=== PATIENT | female | born 1975 | race Caucasian/White ===

== ENCOUNTER → 2017-09-29 07:49 | Outpatient (CLI) | payer OTHER, SELFPAY ==
--- NOTE | 2017-09-29 07:51 | HPBI_ITS ---
MAMMOGRAPHY - BILATERAL SCREENING 3-D SCOUT SYNTHESIS REASON FOR EXAM: Female, 42 years old. Bilateral Screening 3-D tomosynthesis PERTINENT HISTORY: No significant family history. TECHNIQUE: 2-D mammograms and 3-D Scout synthesis of the breast (s) were performed. CAD was performed. COMPARISON: None. Baseline examination. FINDINGS: The breast composition is heterogeneously dense that can obscure small breast masses. Scattered benign calcifications are seen. No dense spiculated masses or suspicious microcalcifications are identified. No architectural distortion is identified. There is no skin thickening or retraction. HPBI/SCREENING MAMM (CAD), BILAT IMPRESSION: No mammographic signs of malignancy. Routine yearly mammograms recommended. ASSESSMENT CATEGORY: BIRADS Category 2: Benign. A letter regarding these results will be sent to the patient by the facility within 30 days. FOLLOW UP RECOMMENDATION: Yearly follow up mammogram recommended. (A) Approximately 10% of breast cancers are not detected by mammography. A normal mammogram should not delay biopsy of a clinically suspicious abnormality. Electronically Signed: Foster Reich MD at 8:31 EDT , Service support ,
== END ==
PROVIDERS: Family Provider Family Medicine; PCP Family Medicine; Visit Provider Obstetrics & Gynecology
DX: Z12.31 Encounter for screening mammogram for malignant neoplasm of breast (principal)
CPT/HCPCS: 77063; 77067

== ENCOUNTER 2018-04-01 10:43 | Emergency (ER) | payer OTHER, SELFPAY ==
[2018-04-01 10:44] VITALS: BP 119/82; PULSE 84; RESP 18; TEMP 36.6; O2SAT 99; BMI 21.2
--- NOTE | 2018-04-01 11:14 | RAD_ITS ---
STUDY: X-RAY - PELVIS AND LEFT HIP REASON FOR EXAM: Female, 43 years old. Fall. Pain in the left hip and pelvis. TECHNIQUE: Radiological exam, hip, unilateral, with pelvis when performed; 2 or 3 views. COMPARISON: None. FINDINGS: There is a non-specific bowel gas pattern. Normal visualized soft tissue structures. Normal bilateral iliac wings, sacroiliac joints and visualized sacrum. Normal bilateral superior and inferior pubic rami. Normal pubic symphysis. Normal bilateral ischial tuberosities. Normal visualized left femoral head. Normal left acetabulum. Normal left hip joint. RAD/HIP, UNI W/ Pelvis 2-3 Views IMPRESSION: Normal x-ray examination of the pelvis and left hip. Electronically Signed: Damon Pierre DO at 12:02 EDT Tel [phone], Service support ,
--- NOTE | 2018-04-01 12:22 | ED.VISSUMM ---
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 Yesterday she was walking out of the patient's room when she fell on wet floor landing on her left hip. She is complaining of pain to the posterior left hip. She denies paresthesias or pain radiating down her leg. She denies striking her head. Physical Examination: Vital signs are unremarkable. Patient sitting in a bedside chair. She is in no acute distress. Head neck examination is unremarkable. Heart is regular rate and rhythm. Lung sounds clear. Lower extremity examination reveals tenderness palpation of the posterior and lateral acid of the left hip. She has minimal pain with logroll. She has good strength and sensation with strong distal pulses. Back examination reveals tenderness in the left lumbar paraspinals. No ecchymosis noted. Test Results: Pelvis and left hip x-rays are obtained and unremarkable. Emergency Department Course and Treatment: Test results are discussed with patient. She will use Tylenol or ibuprofen at home. She will follow up with [facility]. Treatment Plan: [] Disposition: Discharge Impression: Mechanical fall with left hip contusion This note was generated with [employer] dictation software. It may contain incorrect words, spelling, and punctuation that were not noted in review of the chart prior to signing ED Disposition - Plan for ED Patient: Chief Complaint: Fall Referrals: Monico Bhandari MD [Primary Care Provider] -
--- NOTE | 2018-04-01 12:24 | ED.DEP ---
ED Disposition - Plan for ED Patient: Disposition: Home or Assisted Living Chief Complaint: Fall Instructions: ED Mechanical Fall, ED Contusion Hip Referrals: [facility] [GROUP OF PHYSICIANS] - 2 Days
[2018-04-01 12:37] VITALS: BP 118/82; PULSE 82; RESP 16; O2SAT 98
== END 2018-04-01 12:55 | disposition home or self-care (01) ==
LOC: ED 12:52
PROVIDERS: Emergency Provider Emergency Medicine; Family Provider Family Medicine; PCP Family Medicine
DX: S70.02XA Contusion of left hip, initial encounter (principal); W01.0XXA Fall on same level from slipping, tripping and stumbling without subsequent striking against object, initial encounter; Y93.89 Activity, other specified; Y92.230 Patient room in hospital as the place of occurrence of the external cause; Y99.0 Civilian activity done for income or pay
CPT/HCPCS: 73502; 99282

== ENCOUNTER → 2018-04-06 08:30 | Outpatient (CLI) | payer OTHER, SELFPAY ==
--- NOTE | 2018-04-06 08:31 | RAD_ITS ---
STUDY: X-RAY - LUMBAR SPINE REASON FOR EXAM: Female, 43 years old. Low back pain following a recent fall. TECHNIQUE: 4 view(s) of the lumbar spine were obtained. 5 images were submitted including oblique views. COMPARISON: None FINDINGS: Normal lumbar lordosis. There is no substantial scoliosis. There is a normal alignment of the vertebrae. Is evidence of a spina bifida occulta of the L5 vertebrae. Normal vertebral bodies and endplates. Normal disc space heights. The soft tissue structures are unremarkable. RAD/L/S Spine Min 4 Views IMPRESSION: Normal x-ray examination of the lumbar spine. Electronically Signed: Amrit Wood MD at 8:59 EDT Tel [phone], Service support ,
== END ==
PROVIDERS: Family Provider Family Medicine; PCP Family Medicine; Referring Provider Physician Assistant Surgical; Visit Provider Physician Assistant Surgical
DX: S70.02XA Contusion of left hip, initial encounter (principal)
CPT/HCPCS: 72110

== ENCOUNTER 2019-08-27 15:33 | Outpatient (RCR) | payer OTHER, SELFPAY ==
[2019-01-24 08:08] VITALS: BMI 21.7
--- NOTE | 2019-08-28 10:52 | MASS.EVAL ---
Massage Therapy Evaluation: Initial Evaluation Date: 08/27/2019 /Age: 09 1975, 44 Diagnosis: Neck Pain Goals: Decrease neck and shoulder pain and tension Relief of radiating pain in left upper extremity Assessment: Talya is a good candidate for massage at this time. She responded well to her first treatment. Plan: To be seen one time per month or PRN for a total of 10 one hour sessions.
--- NOTE | 2020-06-18 08:54 | DS.PCM_ITS ---
Massage Therapy Discharge Summary: Initial Evaluation Date: 08/27/2019 Diagnosis: Neck Pain No. of Visits: One Date of last visit: 08/27/2019 This patient is being discharged from our care at the [facility]. Thank you, Jojo Powell LMT
== END 2019-08-27 19:00 | disposition home or self-care (01) ==
LOC: MASS 15:33
PROVIDERS: PCP Family Medicine; Referring Provider Family Medicine; Visit Provider Family Medicine
DX: M54.2 Cervicalgia (principal)
CPT/HCPCS: 97124

== ENCOUNTER 2019-09-08 12:20 | Emergency (ER) | payer OTHER, SELFPAY ==
[2019-01-24 08:08] VITALS: BMI 21.7
[2019-09-08 12:23] VITALS: BP 131/84; PULSE 84; RESP 19; TEMP 36.8; O2SAT 97; BMI 21.9
--- NOTE | 2019-09-08 12:33 | EKG12_ITS ---
Test Reason : CP Blood Pressure : / mmHG Vent. Rate : 087 BPM Atrial Rate : 087 BPM P-R Int : 148 ms QRS Dur : 068 ms QT Int : 354 ms P-R-T Axes : 071 062 056 degrees QTc Int : 425 ms Normal sinus rhythm Septal infarct , age undetermined Abnormal ECG Confirmed by ARNOL MERINO, ALPA ([id number]), non linear editor JORGE ALBERTO CONNOLLY ([id number]) on 09/09/2019 10:18:15 AM Referred By: DARLINE Confirmed By:ALPA AMBROSE MD
--- NOTE | 2019-09-08 12:34 | RAD_ITS ---
STUDY: X-RAY CHEST REASON FOR EXAM: Female, 44 years old. CHEST PAIN X 2 DAYS TECHNIQUE: PA and lateral views of the chest. COMPARISON: None. FINDINGS: The lungs are clear and expanded. There is no demonstrated pleural abnormality. Normal size heart. Normal mediastinum and lei. Normal visualized pulmonary arteries. Normal visualized aortic arch and descending thoracic aorta. Normal visualized thoracic spine. Normal visualized ribs, clavicles, and shoulders. There is no demonstrated abnormality of the visualized soft tissue structures of the upper abdomen. RAD/Chest PA and Lateral IMPRESSION: No acute cardiopulmonary process. Electronically Signed: Dilan Whiting MD (Brooks) at 13:30 EST , Service support ,
--- NOTE | 2019-09-08 12:35 | ED.VIS.CHEST ---
History of Present Illness Informant: Patient Onset: Days - 2 days Activity at onset: Light Activity, Rest Timing: Continuous Quality: Burning Location: Substernal Current Severity: Moderate Maximum Severity: Moderate Worsened By: Nothing Relieved By: Nothing Associated Symptoms: Negative for: Nausea, Vomiting, Diaphoresis, Dyspnea, Cough, Fever, Lightheadedness, Acid Reflux, Palpitations Narrative: 4-year-old female presents to the emergency department with substernal chest pain that is been constant now for the last 2 days. Nothing really makes it better or worse. She is not short of breath. She is not lightheaded or dizzy. She has no nausea vomiting or diaphoresis. No back pain or abdominal pain. No vomiting or diarrhea. No leg pain or swelling. No hemoptysis. No upper respiratory symptoms. No recent travel or surgery. No history of DVT or PE. She states that she has felt just generally weak and fatigued since his pain began 2 days ago. She is not on hormones. She does have a family history grandfather on father's side [place] around age 50. She has never had a stress test she does not smoke cigarettes and is not on any daily medications. Prior Similar Symptoms: No Recent Illness/Hospitalization: No CVD Risk Factors: Family History 1' </=55. Negative for: Hypertension, Diabetes, Hypercholesterolemia, Smoking PE Risk Factors: Negative for: Recent Travel/Surgery, Recenet Immobilization, Prior DVT or PE, Cancer, OCP + Smoking + >/=35 TAD Risk Factors: Negative for: Hypertension, Family History <Eran Lara - Last Filed: 09/08/19 13:51> <Christiano Perez - Last Filed: 09/08/19 14:02> Chief Complaint: Chest Pain Past Medical History Prior records reviewed: Yes Past Medical History: None Surgical History: no surgical history Lives: With Family Smoking Status: Never smoker Alcohol: Occasional <Eran Lara - Last Filed: 09/08/19 13:51> <Rick Perezo - Last Filed: 09/08/19 14:02> - Allergies and Home Meds Allergies/Adverse Reactions: Allergies No Known Allergies Allergy (Verified 09/08/19 12:23) Primary Care Physician: Monico Bhandari MD [Primary Care Provider] - 3-5 Days Review of Systems All systems negative except as indicated General: Denies: Chills, Fever Eyes: Denies: Visual changes - bilaterally, Blurred Vision - bilaterally, Diplopia ENT: Denies: Rhinorrhea, Sore throat Cardiovascular: Reports: Chest pain. Denies: Palpitations, Heart racing Respiratory: Denies: Dyspnea, Cough, Sputum Gastrointestinal: Denies: Abdominal pain, Nausea, Vomiting, Diarrhea, Constipation, Melena Genitourinary: Denies: Dysuria, Frequency Musculoskeletal: Denies: Myalgias, Arthralgias, Neck pain, Back pain, Swelling, Extremity Pain Skin: Denies: Rash, Abscess, Abrasions, Wounds Neurological: Denies: Headache, Weakness, Parasthesia, Numbness Hematologic: Denies: Easy bruising, Easy bleeding <Eran Lara - Last Filed: 09/08/19 13:51> Physical Exam Vital Signs/Narrative: Vital Signs Temp Pulse Resp BP Pulse Ox 09/08/19 12:23 98.2 F 84 19 H 131/84 H 97 Inital Vital Signs reviewed: Yes General: Well nourished, Well developed, No Acute Distress Head: Normocephalic, Atraumatic Eyes: Perrl, EOMI ENT: Moist mucous membranes Neck: Supple, Nontender, No lymphadenopathy, No JVD Cardiovascular: Regular rate, Regular rhythm, No murmurs Respiratory: No distress, CTA bilaterally, Chest nontender Abdomen: Soft, Nontender, Nondistended, Normal bowel sounds, No masses Back: Nontender, Normal Inspection Extremities: Nontender, No edema Skin: Normal color, No rash Neurological: Alert, Oriented x3 Psychological: Normal affect, Normal Mood <Eran Lara - Last Filed: 09/08/19 13:51> Vital Signs/Narrative: Vital Signs Temp Pulse Resp BP Pulse Ox 09/08/19 12:23 98.2 F 84 19 H 131/84 H 97 <Perez,Christiano - Last Filed: 09/08/19 14:02> Diagnostic/Tx/Re-eval Chest X-Ray - ED: 2 View, Read by ED Physician, Read by Radiologist, No Acute Disease - Rhythm Strip Rhythm Strip: Sinus Rhythm Rate: 87 Ectopy: None - EKG Initial EKG Interpretation: Sinus Rhythm, No Acute Injury Pattern Prior: No Prior Treatment: GI Cocktail Repeat Eval: Pain Free THI Risk: No Positive THI Elements Score: 0 - Medical Decision Making EKG was normal sinus rhythm rate of 87 bpm. No acute ischemic changes. There is no previous EKG available for comparison. Patient had taken aspirin prior to arrival. She was given a GI cocktail. Vital signs are stable. Patient's chest x-ray was unremarkable for acute abnormality. CBC, CMP, lipase all are unremarkable. Troponin is negative. Repeat evaluation patient does have improvement of her symptoms. She is not having chest pain. Vital signs remained stable. She is feeling well and improved. We calculated her heart score at 1 for family history. In addition she has been having symptoms for 2 days. We do not feel she needs admission or repeat troponin testing. I discussed this with her and she is agreeable with this plan. We will discharge the patient home and have her follow-up with her primary care. She was encouraged use Pepcid [id number], she declined a prescription. Return precautions were given. <Eran Lara - Last Filed: 09/08/19 13:51> - Medical Decision Making For my own independent history and physical. Patient presents with chest discomfort that essentially radiates to the right and left side. There was no radiation to the left shoulder or arm. There is no associated symptoms. Onset Monday. She did take aspirin. She has not taken anything else for the pain. She also complains of sour taste in her mouth/throat and intermittent burning pain. There is family history coronary disease at young age. That is her only risk factor. She became concerned because she was dyspneic with activity today. It did not make the chest tightness/pressure worse. She denies black or maroon stool. She denies intolerance to greasy or fried foods. She denies history of gallbladder disease or gallbladder disease in the family. Vital signs noted. She appears in no distress. HEENT is unremarkable. Lungs are clear to auscultation with good movement of bilateral. Heart is regular murmur, gallop or rub. Abdomen is remarkable for pain in the epigastric area. Negative Iraheta sign. No hepatomegaly or splenomegaly. Lower extremity exam is unremarkable. Neuro exam is nonfocal. EKG reveals decreased anterior force otherwise unremarkable. Blood work is unremarkable. Patient was treated with GI cocktail. She was reassessed x2 prior to discharge and reports marked improvement/resolution of her symptoms. She was discharged to home. <ChrisChristiano - Last Filed: 09/08/19 14:02> ED Disposition <Eran Lara - Last Filed: 09/08/19 13:51> <Christiano Perez - Last Filed: 09/08/19 14:02> - Plan for ED Patient: Disposition: Home or Assisted Living Diagnosis: Chest pain of uncertain etiology Instructions: CHEST PAIN, Uncertain Cause Referrals: Monico Bhandari MD [Primary Care Provider] - 3-5 Days
[2019-09-08] MEDS: 0.9% Normal Saline 1,000 ML 1000 ML IV (13:09)
[2019-09-08] MEDS: Mag Hydrox/Al Hydrox/Simeth 30 ML UDC PO (13:09)
--- NOTE | 2019-09-08 13:09 | NURSING ---
NO OLD EKGS
[2019-09-08 13:25] LABS: Absolute Lymphocyte Count 1.54 X10^3/uL (0.83-4.51); Absolute Neutrophil Count 3.2 X10^3/uL (2.0-7.7); Basophil# 0.03 X10^3/uL; Basophil% 0.6 % (0-1); Eosinophil# 0.03 X10^3/uL; Eosinophils% 0.6 % (0-5); Hematocrit 36.8 % (37-47); Hemoglobin 12.5 g/dL (12.0-15.0); Lymphocyte # 1.54 X10^3/ul (4.0); Lymphocyte % 29.4 % (19-41); Mean Corpuscular Hgb 28.9 pg (27.0-32.0); Mean Corpuscular Volume 85.2 fL (81-99); Mean Platelet Vol. 10.7 fl (6.2-12.0); Monocyte# 0.39 X10^3/uL; Monocyte% 7.4 % (0-10); NRBC Flagged by Analyzer 0 % (0-5); Neutrophil # 3.24 X10^3/uL (2.7-7.7); Neutrophil % 61.8 % (47-70); Platelet Count 196 K/mm3 (150-450); RBC Distribution Width CV 11.8 % (11.6-14.6); RBC Distribution Width SD 36.3 fl (35.1-43.9); Red Blood Count 4.32 M/mm3 (4.2-5.4); White Blood Count 5.2 K/mm3 (4.4-11.0)
[2019-09-08 13:35] LABS: Internal QC Validated? YES +Cl - CLEAR BKGD; Pregnancy, Serum, hCG Quali. NEGATIVE Negative
[2019-09-08 13:46] LABS: ALB/GLOB Ratio 1.1 RATIO (0.9-2.4); AST(SGOT) 14 U/L (15-37); Alanine Aminotransfer ALT/SGPT 20 U/L (13-56); Albumin, Serum 3.8 g/dL (3.2-5.0); Alkaline Phosphatase 60 U/L (45-117); Anion Gap 7 (5-15); BUN 14 mg/dL (7-18); BUN/Creat Ratio 17.2 RATIO (10-20); Calcium,Total 9.2 mg/dL (8.5-10.1); Chloride 108 mmol/L (98-107); Creatinine, Serum 0.81 mg/dL (0.55-1.02); EST Glomerular Filtration Rate 81 mL/min (>60); Est Glom Filt Rate - Afr Amer 99 mL/min (>60); Estimated Creatinine Clearance 83.84 ml/min; Globulin 3.4 g/dL (2.2-4.2); Glucose 80 mg/dL (74-106); Lipase 103 U/L (73-393); Potassium 3.3 mmol/L (3.5-5.1); Protein, Total 7.2 g/dL (6.4-8.2); Sodium Level 140 mmol/L (136-145)
[2019-09-08 14:09] VITALS: BP 122/84; PULSE 78; PULSE 79; RESP 11; RESP 12; O2SAT 100; O2SAT 97
== END 2019-09-08 14:19 | disposition home or self-care (01) ==
PROVIDERS: Emergency Provider Physician Assistant Medical; PCP Family Medicine
DX: R07.2 Precordial pain (principal); R53.1 Weakness; R53.83 Other fatigue
CPT/HCPCS: 71046; 80053; 83690; 84484; 84703; 85025; 93005; 96360; 99285; J7030; A4216

== ENCOUNTER → 2020-06-10 16:51 | Outpatient (CLI) | payer OTHER, SELFPAY ==
[2020-06-10 18:27] LABS: Hematocrit 38.3 % (37-47); Hemoglobin 12.7 g/dL (12.0-15.0); Mean Corp Hgb Conc 33.2 g/dL (32-36); Mean Corpuscular Hgb 28.9 pg (27.0-32.0); Mean Platelet Vol. 11.3 fl (6.2-12.0); Platelet Count 198 K/mm3 (150-450); RBC Distribution Width SD 38.5 fl (35.1-43.9); White Blood Count 6.8 K/mm3 (4.4-11.0)
[2020-06-10 19:16] LABS: Anion Gap 6 (5-15); BUN 16 mg/dL (7-18); BUN/Creat Ratio 22.4 RATIO (10-20); Calcium,Total 9.5 mg/dL (8.5-10.1); Chloride 108 mmol/L (98-107); Creatinine, Serum 0.71 mg/dL (0.55-1.02); EST Glomerular Filtration Rate 94 mL/min (>60); Est Glom Filt Rate - Afr Amer 114 mL/min (>60); Glucose 90 mg/dL (74-106); Magnesium 2.1 mg/dL (1.6-2.6); Potassium 3.4 mmol/L (3.5-5.1); Sodium Level 140 mmol/L (136-145); Thyroid Stim Hormone (TSH) 1.83 uIU/mL (0.358-3.74)
== END ==
PROVIDERS: PCP Family Medicine; Referring Provider Family Medicine; Visit Provider Family Medicine
DX: R00.2 Palpitations (principal)
CPT/HCPCS: 36415; 80048; 83735; 84443; 85027

== ENCOUNTER → 2020-07-07 09:52 | Outpatient (CLI) | payer OTHER, SELFPAY ==
--- NOTE | 2020-07-07 09:55 | ECHOD_ITS ---
Reason For Study: Palpitations Procedure This was a 2D Doppler, Color Flow transthoracic echocardiogram. Exam performed in department. Left Ventricle Normal LV size. The estimated ejection fraction is 60 %. Normal diastology for age. No regional wall motion abnormalities noted. Right Ventricle Normal RV size. Normal systolic function. Atria Normal left atrium. Normal right atrium. No doppler evidence for ASD. Mitral Valve There is no mitral valve stenosis. No mitral valve insufficiency. Tricuspid Valve There is no tricuspid stenosis. No tricuspid valve insufficiency. Aortic Valve There is no aortic stenosis. No aortic valve insufficiency. Pulmonic Valve There is no pulmonic valvular stenosis. No pulmonic valve insufficiency. Great Vessels Normal aortic root. Pericardium/Pleural No pericardial effusion. MMode/2D Measurements & Calculations LVIDd: 3.9 cm IVSd: 0.89 cm Ao root diam: 2.7 cm LVIDs: 2.0 cm LVPWd: 0.91 cm LA dimension: 2.9 cm FS: 48.2 % LAV(MOD-bp): 29.1 ml LA A4 area: 12.6 cm2 RA A4 area: 10.5 cm2 LAV(MOD-bp) Indexed: 18.2 ml/m2 LAV(MOD-sp2): 32.3 ml LAV(MOD-sp4): 25.9 ml Time Measurements MV dec time: 0.19 sec Doppler Measurements & Calculations MV E max torsten: 112.7 cm/sec Lat Peak E' Torsten: 14.6 cm/sec Med Peak E' Torsten: 10.7 cm/sec MV A max torsten: 78.2 cm/sec E/E' lat: 7.7 E/E' med: 10.5 MV E/A: 1.4 MV V2 max: 99.7 cm/sec MV P1/2t max torsten: 99.7 cm/sec Ao V2 max: 142.3 cm/sec MV max P.0 mmHg MV P1/2t: 84.7 msec Ao max P.1 mmHg MV V2 mean: 59.1 cm/sec MV dec slope: 344.7 cm/sec2 MV mean P.6 mmHg MVA(P1/2t): 2.6 cm2 MV V2 VTI: 24.8 cm LV V1 max: 137.5 cm/sec PA V2 max: 95.3 cm/sec TR max torsten: 222.9 cm/sec LV V1 max P.6 mmHg TR max P.9 mmHg Interpretation Summary The estimated ejection fraction is 60 %. Normal diastology for age. Ordering Physician: Monico Bhandari Referring Physician: Monico Bhandari Performed By: Donell Reddy RCS
== END ==
PROVIDERS: PCP Family Medicine; Referring Provider Family Medicine; Visit Provider Family Medicine
DX: R00.2 Palpitations (principal)
CPT/HCPCS: 93306

== ENCOUNTER → 2020-08-20 13:14 | Outpatient (CLI) | payer OTHER, SELFPAY ==
[2020-08-20 09:10] VITALS: BMI 22.7
[2020-08-25 14:43] LABS: HPV APTIMA, High Risk Negative (Negative)
== END ==
PROVIDERS: PCP Family Medicine; Referring Provider Nurse Practitioner Women's Health; Visit Provider Nurse Practitioner Women's Health
DX: Z12.4 Encounter for screening for malignant neoplasm of cervix (principal)
CPT/HCPCS: 87624; 88175; G0145

== ENCOUNTER → 2020-08-25 07:43 | Outpatient (CLI) | payer OTHER, SELFPAY ==
[2020-08-20 09:10] VITALS: BMI 22.7
--- NOTE | 2020-08-25 07:44 | BI_ITS ---
MAMMOGRAPHY - BILATERAL SCREENING REASON FOR EXAM: Female, 45 years old. Routine annual screening examination. PERTINENT HISTORY: Non-contributory. TECHNIQUE: Digital bilateral breast scout (3D mammographic acquisition) in the CC and MLO projections. 2-D mediolateral oblique (MLO) and craniocaudad (CC) views of both breasts were obtained. CAD: Full Field Digital Mammography with Computer Added Detection was performed. COMPARISON: Comparison is made with prior study dated 09/29/2017. FINDINGS: Breast Composition: The breasts are heterogeneously dense, which may obscure small masses. There are no dominant masses or suspicious calcifications. Stable small benign-appearing bilateral axillary lymph nodes. No other significant abnormalities are identified. There has been no significant change since the prior study. BI/SCRN MAMM (CAD)W/SCOUT BILAT IMPRESSION: Stable bilateral screening mammogram. Yearly follow-up mammogram recommended. (A) ASSESSMENT CATEGORY: BIRADS Category 2: Benign. A letter regarding these results will be sent to the patient by the facility within 30 days. Approximately 10% of breast cancers are not detected by mammography. A normal mammogram should not delay biopsy of a clinically suspicious abnormality. [id number] Electronically Signed: Amrit Wood MD at 9:23 EST , Service support ,
== END ==
PROVIDERS: PCP Family Medicine; Referring Provider Nurse Practitioner Women's Health; Visit Provider Nurse Practitioner Women's Health
DX: Z12.31 Encounter for screening mammogram for malignant neoplasm of breast (principal)
CPT/HCPCS: 77063; 77067

== ENCOUNTER → 2021-10-27 | Outpatient (CLI) | payer OTHER, SELFPAY ==
--- NOTE | 2021-10-27 07:50 | BI_ITS ---
MAMMOGRAPHY - BILATERAL SCREENING 3-D TOMOSYNTHESIS REASON FOR EXAM: Female, 46 years old. breast cancer screening PERTINENT HISTORY: No significant family history. TECHNIQUE: 2-D mammograms and 3-D Tomosynthesis of the breast (s) were performed. CAD was performed. COMPARISON: 08/25/2020 FINDINGS: The breast composition is heterogeneously dense that can obscure small breast masses. Scattered benign calcifications are seen. No dense spiculated masses or suspicious microcalcifications are identified. No architectural distortion is identified. There is no skin thickening or retraction. There has been no significant change since the prior study. BI/SCRN MAMM (CAD)W/SCOUT BILAT IMPRESSION: No mammographic signs of malignancy. Routine yearly mammograms recommended. ASSESSMENT CATEGORY: BIRADS Category 1: Negative. A letter regarding these results will be sent to the patient by the facility within 30 days. FOLLOW UP RECOMMENDATION: Yearly follow up mammogram recommended. (A) Approximately 10% of breast cancers are not detected by mammography. A normal mammogram should not delay biopsy of a clinically suspicious abnormality. Electronically Signed: Gamaliel Sevilla MD at 8:56 EDT ,
== END | disposition home or self-care (01) ==
LOC: OPBI 07:47
PROVIDERS: PCP Family Medicine; Visit Provider Nurse Practitioner Women's Health
DX: Z12.31 Encounter for screening mammogram for malignant neoplasm of breast (principal)
CPT/HCPCS: 77063; 77067

== ENCOUNTER → 2021-11-22 | Outpatient (CLI) | payer OTHER, SELFPAY ==
[2021-11-22 11:21] LABS: Vitamin D,25 Hydroxy 14.6 ng/mL
[2021-11-22 11:37] LABS: Thyroid Stim Hormone (TSH) 1.68 uIU/mL (0.358-3.74)
== END | disposition home or self-care (01) ==
LOC: LAB 09:51
PROVIDERS: PCP Family Medicine; Visit Provider Nurse Practitioner Women's Health
DX: Z13.21 Encounter for screening for nutritional disorder (principal); Z13.29 Encounter for screening for other suspected endocrine disorder
CPT/HCPCS: 36415; 82306; 84443

== ENCOUNTER 2022-09-26 07:55 | Day surgery (SDC) | payer OTHER, SELFPAY ==
[2022-09-26 08:16] LABS: Internal QC Validated? YES +Cl - CLEAR BKGD; Pregnancy, Urine Negative Negative
[2022-09-26 08:18] VITALS: BP 113/88; PULSE 99; RESP 16; TEMP 37.2; O2SAT 99; BMI 23.9
[2022-09-26] MEDS: Lactated Ringers 1,000 ML 15 ML IV (08:30)
--- NOTE | 2022-09-26 08:39 | HP.PCM_ITS ---
[facility] - General General Date of Admission: 09/26/22 HPI Narrative YUKI BLANKENSHIP, is a 47 F who presents for screening colonoscopy. Patient never had previous colonoscopy. Patient has bowel movements mostly every day. Patient did have 1 episode of bright red blood per rectum but did not happen again. Patient is not aware of any hemorrhoids. Patient denies any chronic abdominal pain/nausea/vomiting/reflux. Patient's paternal grandmother did have colon cancer in her 50s to 60s but no immediate family history of colon cancer. [facility] Medical History (Updated 09/23/22 @ 10:48 by Michela Preciado) Alcohol use Back pain Easy bruising History of echocardiogram Leg cramps Non-smoker Shoulder pain Wears glasses Home Medications ascorbic acid 125 mg-collagen, hydrolyzed 740 mg capsule (Collagen Plus Vitamin C) 1 cap PO DAILY 09/23/22 [History Last Taken Unknown] Allergy/AdvReac Type Severity Reaction Status Date / Time sulfamethoxazole Allergy Intermediate Hives Verified 09/26/22 08:18 [From Bactrim] trimethoprim [From Bactrim] Allergy Intermediate Hives Verified 09/26/22 08:18 Family History Grandfather Heart disease Grandmother Colon cancer Grandfather Cancer Lung cancer Maternal Grandmother Cancer Lung Maternal Sister Addiction Brother Addiction Surgical History (Updated 09/23/22 @ 10:48 by Michela Preciado) No history of previous surgery Social History current occupational status: employed 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 [employer] Smoking Status: Never smoker second hand exposure: No alcohol intake: current alcohol intake frequency: a few times a week Alcohol type: beer and wine substance use type: does not use what type of physical activity do you participate in: none Past Medical/Surgical History Planned Operation Planned Operative Procedure/s: CSCOPE OA Previous Hospitalizations/Surgeries HX Hospitalizations: No Any Problems With Anesthesia: No (NO SURGERY HX) You/Your Family Experience Fever (Hyperthermia) With Anes: No Cholinesterase deficiency: No Cardiovascular Hx Hypertension: No Respiratory Hx Sleep Apnea: No Hx Respiratory Tract Infection/Cold (presently): No Do You Snore Loudly (louder than talking or can be heard): No Do You Often Feel Tired/ Fatigued/ Sleepy Dring Daytime?: No Has Anyone Observed You Stop Breathing During Sleep?: No Result (for STOP score): Negative Smoking Status: Never smoker Neurological Does patient have nerve stimulator: No Reproduction : No Miscellaneous Recent Exposure to Contagious Disease: No Allergies sulfamethoxazole [From Bactrim] Allergy (Intermediate, Verified 09/26/22 08:18) Hives trimethoprim [From Bactrim] Allergy (Intermediate, Verified 09/26/22 08:18) Hives Discharge Is Pt Admitted From a [facility], or a Nursing Home: No After D/C, Where Do you Plan to Go: Return Home Vital Signs Vital Signs Vital Signs: 09/26/22 08:18 09/26/22 08:18 Temperature 99.0 F Temperature Source Temporal Pulse Rate 99 Respiratory Rate 16 Respiratory Pattern Normal Blood Pressure 113/88 H Blood Pressure Mean 96 Blood Pressure Source Monitor Blood Pressure Position Semi-Fowlers Blood Pressure Location Left Arm Pulse Ox 99 Oxygen Delivery Method Room Air Weight Weight: 135 lb Body Mass Index (BMI) 23.9 Physical Exam Const alert, oriented x3 and no apparent distress HEENT normocephalic and head/scalp atraumatic Resp normal respiratory effort Cardio regular rate GI soft to palpation and non-tender; Negative for non-distended Palpation: Negative for guarding Extremity no clubbing, cyanosis or edema Neuro CN's II-XII intact bilaterally Psych mental status grossly normal Assessment & Plan Assessment/Plan (1) Encounter for screening for malignant neoplasm of colon: Surgery Risks - Colonoscopy Risks Include but are not Limited To: Risks include but are not limited to: Bleeding, perforation requiring further surgery, inability to complete colonoscopy requiring barium enema.
[2022-09-26 09:20] VITALS: BP 113/88; BP 96/66; PULSE 74; RESP 16; TEMP 36.5; O2SAT 98
--- NOTE | 2022-09-26 09:24 | OP.COLON_ITS ---
Patient Name: Talya Gooden Procedure Date: 09/26/2022 8:45 AM Date of : 1975 Age: 47 Procedure: Colonoscopy Indications: Screening for colorectal malignant neoplasm Providers: Janet Mckeon MD Referring MD: Monico Bhandari Medicines: Monitored Anesthesia Care Patient Profile: This is a 47 year old female. Last Colonoscopy: none. The patient's first colonoscopy is today. Complications: No immediate complications. Procedure: Pre-Anesthesia Assessment: - Prior to the procedure, a History and Physical was performed, and patient medications and allergies were reviewed. The patient's tolerance of previous anesthesia was also reviewed. The risks and benefits of the procedure and the sedation options and risks were discussed with the patient. All questions were answered, and informed consent was obtained. Prior Anticoagulants: The patient has taken no previous anticoagulant or antiplatelet agents. ASA Grade Assessment: Per anesthesia. After reviewing the risks and benefits, the patient was deemed in satisfactory condition to undergo the procedure. After I obtained informed consent, the scope was passed under direct vision. Throughout the procedure, the patient's blood pressure, pulse, and oxygen saturations were monitored continuously. The Colonoscope was introduced through the anus and advanced to the cecum, identified by the appendiceal orifice, ileocecal valve and palpation. The colonoscopy was somewhat difficult due to a tortuous colon. Successful completion of the procedure was aided by applying abdominal pressure. Scope In: 8:57:41 AM Scope Withdrawal Time 0 hours 8 minutes 49 seconds Scope Out: 9:16:21 AM Total Procedure Duration Time 0 hours 18 minutes 40 seconds Findings: Hemorrhoids were found on perianal exam. Non-bleeding internal hemorrhoids were found. The hemorrhoids were Grade I (internal hemorrhoids that do not prolapse). The exam was otherwise without abnormality. Impression: - Hemorrhoids found on perianal exam. - Non-bleeding internal hemorrhoids. - The examination was otherwise normal. - No specimens collected. Recommendation: - Discharge patient to home. - Resume previous diet. - Continue present medications. - Repeat colonoscopy in 10 years for screening purposes. Procedure Code(s): --- Professional --- 18907, PT, Colonoscopy, flexible; diagnostic, including collection of specimen(s) by brushing or washing, when performed (separate procedure) Diagnosis Code(s): --- Professional --- Z12.11, Encounter for screening for malignant neoplasm of colon K64.0, First degree hemorrhoids CPT copyright 2017 [employer]. All rights reserved. The codes documented in this report are preliminary and upon gis technician review may be revised to meet current compliance requirements. MD Janet Griffiths MD 09/26/2022 9:23:47 AM This report has been signed electronically. Number of Addenda: 0 Note Initiated On: 09/26/2022 8:45 AM
[2022-09-26 09:25] VITALS: BP 113/88; BP 97/66; PULSE 88; RESP 16; O2SAT 99
--- NOTE | 2022-09-26 09:25 | OP.CCLET_ITS ---
09/26/2022 Monico Bhandari [address] [place] [address] Re : Colonoscopy procedure for Talya Gooden Dear Dr. Bhandari This procedure was performed on Monday, September 26, 2022. My impressions and recommendations are as follows: Impressions : - Hemorrhoids found on perianal exam. - Non-bleeding internal hemorrhoids. - The examination was otherwise normal. - No specimens collected. Recommendations : - Discharge patient to home. - Resume previous diet. - Continue present medications. - Repeat colonoscopy in 10 years for screening purposes. My findings are described in the full procedure note, which is enclosed. If I can be of further assistance, please feel free to contact me at Doctor phone number(s): , Work: . Sincerely, MD Janet Griffiths MD 09/26/2022 9:23:47 AM This report has been signed electronically.
[2022-09-26 09:30] VITALS: BP 113/88; BP 97/80; PULSE 83; RESP 16; O2SAT 99
[2022-09-26 09:35] VITALS: BP 107/75; BP 113/88; PULSE 76; RESP 16; TEMP 36.7; O2SAT 100
[2022-09-26 10:09] VITALS: BP 113/88
== END 2022-09-26 10:18 | disposition home or self-care (01) ==
LOC: EN 07:58 → AC 08:09
PROVIDERS: Anesthesiology; PCP Family Medicine; Referring Provider Family Medicine; Visit Provider Surgery
PROC: 0DJD8ZZ Inspection of Lower Intestinal Tract, Via Natural or Artificial Opening Endoscopic (ICD-10-PCS; CPT 45378; principal; 2022-09-26 09:10)
DX: Z12.11 Encounter for screening for malignant neoplasm of colon (principal); K64.0 First degree hemorrhoids; Z80.0 Family history of malignant neoplasm of digestive organs
CPT/HCPCS: 45378; 81025; J7120; J2405

== ENCOUNTER → 2023-03-27 | Outpatient (CLI) | payer OTHER, SELFPAY ==
--- NOTE | 2023-03-27 07:34 | BI_ITS ---
MAMMOGRAPHY - BILATERAL SCREENING REASON FOR EXAM: Female, 48 years old. Routine annual screening examination. PERTINENT HISTORY: Non-contributory. TECHNIQUE: Digital bilateral breast scout (3D mammographic acquisition) in the CC and MLO projections. 2-D mediolateral oblique (MLO) and craniocaudad (CC) views of both breasts were obtained. CAD: Full Field Digital Mammography with Computer Added Detection was performed. COMPARISON: Comparison is made with prior study dated October 27, 2021 and 7015 2020. FINDINGS: Breast Composition: The breasts are extremely dense, which lowers the sensitivity of mammography. There are no dominant masses or suspicious calcifications. No other significant abnormalities are identified. There has been no significant change since the prior study. BI/SCRN MAMM (CAD)W/SCOUT BILAT IMPRESSION: Stable bilateral screening mammogram. Yearly follow-up mammogram recommended. (A) ASSESSMENT CATEGORY: BIRADS Category 1: Negative. A letter regarding these results will be sent to the patient by the facility within 30 days. Approximately 10% of breast cancers are not detected by mammography. A normal mammogram should not delay biopsy of a clinically suspicious abnormality. [id number] Electronically Signed: Amrit Wood MD at 9:25 EDT ,
== END | disposition home or self-care (01) ==
LOC: OPBI 07:32
PROVIDERS: PCP Family Medicine; Referring Provider Nurse Practitioner Women's Health; Visit Provider Nurse Practitioner Women's Health
DX: Z12.31 Encounter for screening mammogram for malignant neoplasm of breast (principal)
CPT/HCPCS: 77063; 77067

== ENCOUNTER → 2023-04-11 | Outpatient (CLI) | payer OTHER, SELFPAY ==
--- NOTE | 2023-04-11 13:19 | US_ITS ---
STUDY: ULTRASOUND OF THE FEMALE PELVIS - COMPLETE REASON FOR EXAM: Female, 48 years old. MENORRHAGIA LMP: March 25, 2023. TECHNIQUE: Transabdominal TECHNICAL QUALITY: Adequate. COMPARISON: None. FINDINGS: The uterus is retroverted and is in a midline position. The uterus measures 9.3 cm x 4.6 cm x 4.8 cm. Normal uterine cervix. The endometrium measures 11 mm in thickness, and is heterogeneous (striated). There is no demonstrated endometrial mass. There is no demonstrated myometrial mass. I.U.D. - The patient does not have an I.U.D. The right ovary is visualized. The right ovary measures 5 cm x 1.6 cm x 1.9 cm. There is a 2.1 cm x 1.6 cm x 1.6 cm simple cyst in the right ovary. There is no visualized right adnexal mass or complex lesion. There is normal arterial and normal venous vascularity. The left ovary is visualized. The left ovary measures 5 cm x 3.2 cm x 2.1 cm. There is a 2.2 cm x 1.8 centimeter by 1.7 cm simple cyst. There is no visualized left adnexal mass or complex lesion. There is normal arterial and normal venous vascularity. There is no fluid in the cul-de-sac. The pre void volume of the bladder was 490.5 ml. US/Pelvic (Non ) IMPRESSION: Small bilateral ovarian cysts. Electronically Signed: Amrit Wood MD at 10:25 EDT ,
== END | disposition home or self-care (01) ==
LOC: OPUS 13:18
PROVIDERS: PCP Family Medicine; Referring Provider Nurse Practitioner Women's Health; Visit Provider Nurse Practitioner Women's Health
DX: N92.0 Excessive and frequent menstruation with regular cycle (principal)
CPT/HCPCS: 76856

== ENCOUNTER → 2024-04-03 | Outpatient (CLI) | payer OTHER, SELFPAY ==
--- NOTE | 2024-04-03 07:26 | BI_ITS ---
MAMMOGRAPHY - BILATERAL SCREENING REASON FOR EXAM: Female, 49 years old. Routine annual screening examination. PERTINENT HISTORY: Non-contributory. TECHNIQUE: Digital bilateral breast scout (3D mammographic acquisition) in the CC and MLO projections. 2-D mediolateral oblique (MLO) and craniocaudad (CC) views of both breasts were obtained. CAD: Full Field Digital Mammography with Computer Added Detection was performed. COMPARISON: Comparison is made with prior study dated March 27, 2023 and October 27, 2021. FINDINGS: Breast Composition: The breasts are extremely dense, which lowers the sensitivity of mammography. There are no dominant masses or suspicious calcifications. No other significant abnormalities are identified. There has been no significant change since the prior study. BI/SCRN MAMM (CAD)W/SCOUT BILAT IMPRESSION: Stable bilateral screening mammogram. Yearly follow-up mammogram recommended. (A) ASSESSMENT CATEGORY: BIRADS Category 1: Negative. A letter regarding these results will be sent to the patient by the facility within 30 days. Approximately 10% of breast cancers are not detected by mammography. A normal mammogram should not delay biopsy of a clinically suspicious abnormality. [id number] Electronically Signed: Amrit Wood MD at 8:26 EDT ,
== END | disposition home or self-care (01) ==
LOC: OPBI 07:25
PROVIDERS: PCP Family Medicine; Referring Provider Family Medicine; Visit Provider Family Medicine
DX: Z12.31 Encounter for screening mammogram for malignant neoplasm of breast (principal)
CPT/HCPCS: 77063; 77067

== ENCOUNTER → 2025-01-13 | Outpatient (CLI) | payer OTHER, SELFPAY ==
[2025-01-13 18:07] LABS: Hematocrit 38.2 % (37-47); Hemoglobin 12.8 g/dL (12.0-15.0); Immature Granulocytes Count 0.030 X10^3/uL (0.0-0.0); Mean Corp Hgb Conc 33.5 g/dL (32-36); Mean Corpuscular Volume 88.0 fL (81-99); Mean Platelet Vol. 10.6 fl (6.2-12.0); NRBC Flagged by Analyzer 0 % (0-5); Platelet Count 210 K/mm3 (150-450); RBC Distribution Width CV 12.3 % (11.6-14.6); RBC Distribution Width SD 39.4 fl (35.1-43.9); Red Blood Count 4.34 M/mm3 (4.2-5.4); White Blood Count 7.4 K/mm3 (4.4-11.0)
[2025-01-13 19:04] LABS: AST(SGOT) 19 U/L (<=31); Alanine Aminotransfer ALT/SGPT 16 U/L (<=34); Albumin, Serum 4.3 g/dL (3.5-5.0); Alkaline Phosphatase 55 U/L (35-104); Anion Gap 9 (5-15); BUN 16 mg/dL (4-19); BUN/Creat Ratio 13.3 RATIO (10-20); Calcium,Total 9.6 mg/dL (7.6-11.0); Carbon Dioxide 24.8 mmol/L (21.0-32.0); Chloride 106 mmol/L (98-108); Globulin 2.5 g/dL (2.2-4.2); Glucose 109 mg/dL (70-99); Potassium 4.2 mmol/L (3.3-5.1)
== END | disposition home or self-care (01) ==
LOC: MTLAB 16:35
PROVIDERS: PCP Family Medicine
DX: R60.0 Localized edema (principal)
CPT/HCPCS: 36415; 80053; 83036; 84443; 85025

== ENCOUNTER 2025-01-31 09:27 | Emergency (ER) | payer OTHER, SELFPAY ==
[2025-01-31] VITALS (8 sets, daily range): BP systolic 113–156; BP diastolic 81–96; PULSE 73–96; RESP 15–19; TEMP 36.6; O2SAT 97–100; BMI 27.1
--- NOTE | 2025-01-31 09:34 | EKG12_ITS ---
Test Reason : JAW PAIN Blood Pressure : */* mmHG Vent. Rate : 95 BPM Atrial Rate : 95 BPM P-R Int : 152 ms QRS Dur : 58 ms QT Int : 332 ms P-R-T Axes : 64 39 40 degrees QTcB Int : 417 ms Normal sinus rhythm Nonspecific ST abnormality Abnormal ECG Confirmed by ARNOL MERINO, ALPA ([id number]), international editorial producer NICKI ACEVEDO ([id number]) on 02/03/2025 8:30:46 AM Referred By: THELMA Confirmed By: ALPA AMBROSE MD
--- NOTE | 2025-01-31 09:57 | EX.ED.DYSGE1 ---
HPI History of Present Illness Chief Complaint: Edema Narrative Narrative: Patient is a 49-year-old female past medical history of alcohol use who presents to the emergency department with a chief complaint of chest pain, jaw pain. Patient states that she also has had bilateral lower extremity swelling for a few weeks now. She notes that over the last few weeks while at work she noted that if she has to walk from one side of the hospital to the neck she notes that she has had chest heaviness and more short of breath than normal for self. 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 States that given her swelling and her symptoms with these new symptoms today she came here for further evaluation management. [facility] Medical History Wears glasses Alcohol use Easy bruising Non-smoker Leg cramps History of echocardiogram Back pain Shoulder pain Home Medications ?Medication ?Instructions ?Recorded ?Last Taken ?Type ascorbic acid 125 mg-collagen, 1 cap PO DAILY 09/23/22 Unknown History hydrolyzed 740 mg capsule (Collagen Plus Vitamin C) cholecalciferol (vitamin D3) 25 25 mcg PO DAILY 03/14/23 Unknown History mcg (1,000 unit) capsule etonogestrel 0.12 mg-ethinyl 1 vag ring vaginal Q4W #3 ea 04/16/23 Unknown Rx estradiol 0.015 mg/24 hr vaginal ring (NuvaRing) dexamethasone 6 mg tablet 6 mg PO DAILY #5 tabs 07/25/24 Unknown Rx Allergy/AdvReac Type Severity Reaction Status Date / Time sulfamethoxazole (From Allergy Intermediate Hives Verified 01/31/25 09:30 Bactrim) trimethoprim (From Bactrim) Allergy Intermediate Hives Verified 01/31/25 09:30 Family History Grandfather Heart disease Grandmother Colon cancer Grandfather Cancer Lung cancer Maternal Grandmother Cancer Lung Maternal Sister Addiction Brother Addiction Surgical History No history of previous surgery Social History current occupational status: employed 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 [employer] Smoking Status: Never smoker second hand exposure: No alcohol intake: current alcohol intake frequency: a few times a month Alcohol type: beer and wine substance use type: does not use what type of physical activity do you participate in: none ROS ROS ED ROS Narrative Constitutional: Complains of a headache denies any fevers or chills, lightheadedness Eyes: Denies double vision Cardiovascular: Complaint of chest tightness as noted above denies palpitations Respiratory: Complains of shortness of breath as noted above denies coughing wheezing Abdomen: Denies abdominal pain nausea vomit diarrhea : Denies any urinary symptoms Neurological: Denies any numbness, weakness, tingling Musculoskeletal: Denies back pain Skin: Denies any rashes or lesions EXAM Physical Exam Narrative Exam Narrative: General: Patient is lying in bed rest comfortably did not appear to be in acute distress Head: Atraumatic, normocephalic Eyes: PERRL bilaterally, EOMI by, no conjunctival injection noted Neck: Soft, supple, trachea midline Cardiovascular: Regular rate and rhythm no murmurs gallops rubs noted Respiratory: Clear to auscultation bilaterally Abdomen: Soft, nondistended, nontender to palpation Extremities: Patient has 1+ pitting edema in the bilateral lower extremities, radial pulses +2/4 in the bilateral extremities, +5/5 strength noted in the bilateral upper and lower extremities Neurological: Patient following commands knew that she was at [facility] the year is 2024 Skin: Warm, dry contact no rashes or lesions noted Const Vital Signs: 01/31/25 09:27 01/31/25 10:27 01/31/25 10:48 Temperature 97.8 F Temperature Source Temporal Pulse Rate 96 86 Respiratory Rate 19 H 15 Respiratory Effort Normal Non-Labored Blood Pressure 156/96 H 141/88 H Blood Pressure Mean 116 105 Pulse Ox 97 100 Oxygen Delivery Method Room Air Room Air 01/31/25 10:51 01/31/25 10:56 01/31/25 11:00 Temperature Temperature Source Pulse Rate 84 82 Respiratory Rate 16 Respiratory Effort Blood Pressure 141/88 H 125/84 H Blood Pressure Mean 97 Pulse Ox 99 Oxygen Delivery Method Room Air Room Air 01/31/25 12:00 Temperature Temperature Source Pulse Rate 77 Respiratory Rate 15 Respiratory Effort Blood Pressure 113/81 H Blood Pressure Mean 91 Pulse Ox 99 Oxygen Delivery Method Room Air MDM MDM MDM Narrative Medical decision making narrative: Patient is a 49-year-old female who presents to the emergency department with a chief complaint of right-sided jaw pain chest pain shortness of breath with exertion. On the differential diagnosis includes but limited to stable angina, ACS, pneumonia, CHF, anxiety, GERD. Once workup is obtained and reviewed she will be reevaluated. HEART Score for Major Cardiac Events from [employer] on 01/31/2025 All calculations should be rechecked by clinician prior to use RESULT SUMMARY: 1 points Low Score (0-3 points) Risk of MACE of 0.9-1.7%. INPUTS: History ?> 0 = Slightly suspicious EKG ?> 0 = Normal Age ?> 1 = 45-64 Risk factors ?> 0 = No known risk factors Initial troponin ?> 0 = <=ormal limit [place] Score (Revised) for Pulmonary Embolism from [employer] on 01/31/2025 All calculations should be rechecked by clinician prior to use RESULT SUMMARY: 3 points Low risk group: 7-9% incidence of PE from several studies. INPUTS: Age >65 ?> 0 = No Previous DVT or PE ?> 0 = No Surgery (under general anesthesia) or lower limb fracture in past month ?> 0 = No Active malignant condition ?> 0 = No Unilateral lower limb pain ?> 0 = No Hemoptysis ?> 0 = No Heart rate ?> 3 = 75-94 Pain on lower limb palpation and unilateral edema ?> 0 = No Patient's CBC reviewed showed no evidence leukocytosis white blood count normal at 5.3, hemoglobin is 13.3, plate count normal at 223. Patient sodium normal at 139, potassium normal at 4.2, creatinine normal at 0.89. Patient's troponin was less than 6 with a delta troponin of less than 6. Patient proBNP less than 36. Patient's EKG reviewed and showed sinus rhythm with a rate of 95 bpm. Patient's chest x-ray reviewed by myself and by radiology showed no acute cardiopulmonary processes. Patient ambulated well here in the emergency department no hypoxia no tachycardia. Discussed results with the patient she would like to go home at this point in time. Patient was encouraged to obtain stress testing in outpatient setting as well as echocardiogram. She was advised to return with worsening symptoms or any concerns. She was advised to use compression stockings for her swelling in her lower extremities as there is suspicion that this is venous insufficiency related as she was placed on Lasix recently and that did not help her swelling. She is agreeable this plan as well as family members at bedside all question concerns answered she was discharged home in stable condition. Lab Data Labs: Laboratory Results - last 24 hr 01/31/25 01/31/25 09:50 11:40 WBC 5.3 RBC 4.47 Hgb 13.3 Hct 38.4 MCV 85.9 MCH 29.8 MCHC 34.6 RDW Std Deviation 37.8 RDW Coeff of Radha 12.0 Plt Count 223 MPV 10.3 Immature Gran % (Auto) 0.200 Neut % (Auto) 57.0 Lymph % (Auto) 31.7 Wright % (Auto) 8.1 Eos % (Auto) 2.1 Baso % (Auto) 0.9 Absolute Neuts (auto) 3.0 Absolute Lymphs (auto) 1.69 Nucleated RBC % 0 Sodium 139 Potassium 4.2 Chloride 104 Carbon Dioxide 19.9 L Anion Gap 15 BUN 16 Creatinine 0.89 Estim Creat Clear Calc 72.24 Est GFR (MDRD) Non-Af 80 BUN/Creatinine Ratio 18.4 Glucose 128 H Calcium 9.8 Troponin T High Sens < 6 Troponin T Hi Sens 2 Hr < 6 NT pro BNP II < 36 Radiography Diagnostic Testing: Clinical Impression(s) from Imaging Studies Chest X-Ray 01/31/25 10:02 IMPRESSION: No focal consolidation. Reading Location: [facility] Discharge Plan Triage Chief Complaint: Edema ED Provider: Adam Vergara Dx/Rx/DC Orders Clinical Impression: Chest pain, Swelling of both lower extremities Prescriptions: No Action cholecalciferol (vitamin D3) 25 mcg (1,000 unit) capsule 25 mcg PO DAILY dexamethasone 6 mg tablet 6 mg PO DAILY Qty: 5 0RF Collagen Plus Vitamin C 125-740 mg Capsule 1 cap PO DAILY etonogestrel-ethinyl estradiol [NuvaRing] 0.12-0.015 mg/24 hr ring 1 vag ring vaginal Q4W Qty: 3 4RF Primary Care Provider: Gonzalez Bhandari Referrals: Gonzalez Bhandari MD [Primary Care Provider] - Activity Restrictions/Additional Instructions: Follow-up your doctor in outpatient setting to have a stress test and echocardiogram obtained. Return with worsening symptoms or other concerns. Your workup here today did not show any acute findings your chest x-ray was normal. Wear the compression stockings as we discussed to help get the fluid out to your legs especially while at work. Print Language: Albanian Disposition Disposition: Home, Self Care
--- NOTE | 2025-01-31 10:02 | RAD_ITS ---
PROCEDURE: CHEST PA AND LATERAL 01/31/2025 REASON FOR EXAM: CHEST PAIN TECHNIQUE: CHEST PA AND LATERAL COMPARISON: 09/08/19 FINDINGS: No focal consolidation. No pleural effusion or pneumothorax. Cardiac silhouette is within normal limits. No acute fractures. RAD/Chest PA and Lateral IMPRESSION: No focal consolidation. Reading Location: [id number]
[2025-01-31 10:06] LABS: Hematocrit 38.4 % (37-47); Hemoglobin 13.3 g/dL (12.0-15.0); Immature Granulocytes Count 0.010 X10^3/uL (0.0-0.0); Mean Corp Hgb Conc 34.6 g/dL (32-36); Mean Corpuscular Volume 85.9 fL (81-99); Mean Platelet Vol. 10.3 fl (6.2-12.0); NRBC Flagged by Analyzer 0 % (0-5); Platelet Count 223 K/mm3 (150-450); RBC Distribution Width CV 12.0 % (11.6-14.6); RBC Distribution Width SD 37.8 fl (35.1-43.9); Red Blood Count 4.47 M/mm3 (4.2-5.4); White Blood Count 5.3 K/mm3 (4.4-11.0)
[2025-01-31 10:41] LABS: Troponin T High Sensitivity < 6 ng/L (<=14)
[2025-01-31] MEDS: Nitroglycerin SL (ED/IMG/CATH) 0.4 MG TABLET SL (10:56)
[2025-01-31 12:04] LABS: Anion Gap 15 (5-15); BUN 16 mg/dL (4-19); BUN/Creat Ratio 18.4 RATIO (10-20); Calcium,Total 9.8 mg/dL (7.6-11.0); Carbon Dioxide 19.9 mmol/L (21.0-32.0); Chloride 104 mmol/L (98-108); Estimated Creatinine Clearance 72.24 ml/min (50-250); Glucose 128 mg/dL (70-99); Potassium 4.2 mmol/L (3.3-5.1); Pro- Brain NATRIURETIC PEPTIDE < 36 pg/mL (<=450)
[2025-01-31 12:10] LABS: Troponin T High Sens 2 HR < 6 ng/L (<=14)
== END 2025-01-31 13:58 | disposition home or self-care (01) ==
PROVIDERS: Emergency Provider Emergency Medicine; PCP Family Medicine; Visit Provider Emergency Medicine
DX: R07.9 Chest pain, unspecified (principal); R68.84 Jaw pain; M79.89 Other specified soft tissue disorders; R51.9 Headache, unspecified; R06.02 Shortness of breath
CPT/HCPCS: 71046; 80048; 83880; 84484; 85025; 93005; 99283; A4216

== ENCOUNTER → 2025-02-07 | Outpatient (CLI) | payer OTHER, SELFPAY ==
--- OUTSIDE RECORDS SUMMARY | 2025-02-07 08:11 | XMS RPT_ITS | CCD ---
Author Organization [facility] CliniSyut Care Team Providers Care Cmo & President Name Role Phone Dr. Monico Bhandari Primary Care Provider Dr. Monico Bhandari Referring Provider Dr. Nick Puri Attending Provider [phone] Monico Bhandari Primary Care Provider Dr. Monico Bhandari Referring Provider Derrick GRAPHIC ART TECHNICIAN, GRAPHIC ART TECHNICIAN-C Lucia Attending Provider Dr. Monico Bhandari Primary Care Provider Alisha Valdez Attending Provider Unavailable Dr. Monico Bhandari Referring Provider Dr. Janet Mckeon Attending Provider Dr. Janet Mckeon Other Provider Dr. Monico Bhandari Primary Care Provider Dr. Monico Bhandari Referring Provider Derrick GRAPHIC ART TECHNICIAN, GRAPHIC ART TECHNICIAN-C Lucia Attending Provider Dr. Gonzalez Bhandari MD Primary Care Provider McMorrow GRAPHIC ART TECHNICIAN-CMax Attending Provider Kristenorrow GRAPHIC ART TECHNICIAN-CMax Referring Provider Dr. Adam Vergara DO Emergency Provider [phone] Gonzalez Bhandari Attending Unavailable Gonzalez Bhandari Referring Unavailable Gonzalez Bhandari Primary Care Unavailable McMorrow Max JOHANSEN Attending Unavailable McMorrow GRAPHIC ART TECHNICIANMax Referring Unavailable Gonzalez Bhandari Primary Care Unavailable Gonzalez Bhandari Primary Care Unavailable Adam Vergara Attending Unavailable Assessment, Health Risk Attending Unavaila ble Assessment, Health Risk Referring Unavaila ble Gonzalez Bhandari Primary Care Unavailable Facundo Rosas Attending Unavailable Gonzalez Bhandari Referring Unavailable Gonzalez Bhandari Primary Care Unavailable Facundo Rosas Attending Unavailable Gonzalez Bhandari Referring Unavailable Gonzalez Bhandari Primary Care Unavailable Facundo Rosas Attending Unavailable Gonzalez Bhandari Referring Unavailable Gonzalez Bhandari Primary Care Unavailable Allergies Allergy Classification Reported Allergen(s) Allergy Type Date of Onset Reaction(s) Facility (7 sources) Sulfamethoxazole Drug Allergy 1 [facility] (7 sources) Trimethoprim Drug Allergy 1 [facility] (1 source) Sulfamethoxazole Drug Allergy 5 [facility] (1 source) Trimethoprim Drug Allergy 5 [facility] Medications Current Medications Medication Drug Class(es) Dates Sig (Normalized) Sig (Original) ascorbic acid 125 mg / collagen, hydrolyzed 740 mg oral capsule (4 sources) Vitamin C Start: 09-23-2022 Ascorbic Acid-Collagen (Collagen Plus Vitamin C) 125-740 mg Capsule Active 1 NMA PO DAILY September 23, 2022 12:00am cholecalciferol 0.025 mg oral capsule (3 sources) Vitamin D Start: 03-14-2023 take 1 capsule by mouth once daily Cholecalciferol (Vitamin D3) 25 mcg (1,000 unit) capsule Active 25 ug PO DAILY March 14, 2023 12:00am dexamethasone 6 mg oral tablet (2 sources) Corticosteroid Start: 07-25-2024 take 1 tablet by mouth once daily Dexamethasone 6 mg tablet Active 6 mg PO DAILY July 25, 2024 1:00am 21 day ethinyl estradiol 0.704722 mg/hr / etonogestrel 0.005 mg/hr vaginal system (19 sources) Progestin, Estrogen Start: 04-16-2023 Etonogestrel-Ethiny l Estradiol (Nuvaring) 0.12-0.015 mg/24 hr ring Active 1 NMA VAGINAL every 4 weeks 3 April 16, 2023 12:00am Start: 08-20-2020 End: 11-02-2021 Etonogestrel-Ethinyl Estradi ol (Nuvaring) 0.12-0.015 mg/24 hr ring Discontinued 1 NMA VAGINAL every 4 weeks 3 August 20, 2020 1:00am November 02, 2021 12:02pm Start: 08-20-2020 End: 11-02-2021 Etonogestrel-Ethinyl Estradi ol (Nuvaring) 0.12-0.015 mg/24 hr ring Discontinued 1 VAG RING VAGINAL every 4 weeks 3 August 20, 2020 1:00am November 02, 2021 12:02pm Start: 08-15-2017 End: 05-15-2018 Etonogestrel-Ethinyl Estradi ol (Nuvaring) 0.12-0.015 mg/24 hr ring Discontinued 1 NMA VAGINAL ONCE 1 29 06August 15, 2017 1:00am May 14, 2018 1:00am May 15, 2018 1:08am Start: 08-15-2017 End: 05-15-2018 Etonogestrel-Ethinyl Estradi ol (Nuvaring) 0.12-0.015 mg/24 hr ring Discontinued 1 VAG RING VAGINAL ONCE 1 August 15, 2017 1:00am May 15, 2018 1:08am olopatadine 1 mg/ml ophthalmic solution (3 sources) Histamine-1 Receptor Inhibitor Start: 08-15-2017 Olopatadine (Patanol ) 0.1 % drops Active 1 DRP OPHTHALMIC TWICE A DAY August 15, 2017 11:25am Completed/Discontinued Medications Medication Drug Class(es) Dates Sig (Normalized) Sig (Original) cephalexin 500 mg oral capsule (7 sources) Cephalosporin Antibacterial Start: 0 End: 1 take 1 capsule by mouth every twelve hours Cephalexin 500 mg capsule Discontinued 500 mg PO Q12H 20 10 0 July 08, 2020 1:00am July 17, 2020 1:00am July 18, 2020 1:02am methylPREDNISolone 4 mg oral tablet (7 sources) Corticosteroid Start: 8 End: 8 take 1 tablet by mouth once Methylprednisolone (Medrol (Param)) 4 mg tablets,dose pack Discontinued 4 mg PO per package directions 21 5 0 April 06, 2018 12:00am April 10, 2018 12:00am April 11, 2018 12:07am sulfamethoxazole 800 mg / trimethoprim 160 mg oral tablet (7 sources) Dihydrofolate Reductase Inhibitor Antibacterial, Sulfonamide Antimicrobial Start: 0 End: 0 Sulfamethoxazole-Trim ethoprim (Bactrim Ds) 800-160 mg tablet Discontinued 1 {tbl} PO Q12H 14 7 0 July 07, 2020 1:00am July 13, 2020 1:00am July 08, 2020 9:55am Problems Active Problems Problem Classification Problem Date Documented Da te Episodic/Chronic Immunizations and screening for infectious disease (2 sources) Contact with and (suspected) exposure to other viral communicable diseases; Translations: [Contact with or suspected exposure to other viral communicable disease] 07-25-2024 Episodic Malaise and fatigue (4 sources) Fatigue; Translations: [Other fatigue] Episodic Menstrual disorders (4 sources) Menorrhagia; Translations: [Excessive and frequent menstruation with regular cycle] 03-14-2023 Chronic Nonspecific chest pain (8 sources) Chest pain; Translations: [Chest pain, unspecified] 09-09-2019 Episodic Nutritional deficiencies (4 sources) Vitamin D deficiency; Translations: [Vitamin D deficiency, unspecified] 03-14-2023 Chronic Comment on above: start Vit D, rpt lab 4 week Other connective tissue disease (1 source) Swelling of bilateral lower limbs; Translations: [Other specified soft tissue disorders] 01-31-2025 Episodic Residual codes; unclassified (1 source) Localized edema; Translations: [Localized edema] Onset: 01-16-2025 Episodic Viral infection (2 sources) Disease caused by 2019-nCoV; Translations: [COVID-19] 07-25-2024 Episodic Past or Other Problems Problem Classification Problem Date Documented Da te Episodic/Chronic Other screening for suspected conditions (not mental disorders or infectious disease) (3 sources) Patient encounter status; Translations: [Encounter for screening for malignant neoplasm of colon] Onset: 04-25-2024 08-04-2022 Episodic Results Test Name Value Interpretation Reference Range Facility 12 Lead EKGon 01-31-2025 12 Lead EKG [facility] Cardiovascular Services [address] [place] [address] 12 Lead EKG 01/31/25 0939 MR#: [id number] Acct: [id number] Name: YUKI BLANKENSHIP Rep #: [id number] : 1975 49 From: Clinton Wilder MD Attending Dr: Status: DEP ER Ordering Dr: Adam Vergara DO Date: 01/31/25 Location: ED Sex: F C Admitted: Test Reason : JAW PAIN Blood Pressure : */* mmHG Vent. Rate : 95 BPM Atrial Rate : 95 BPM P-R Int : 152 ms QRS Dur : 58 ms QT Int : 332 ms P-R-T Axes : 64 39 40 degrees QTcB Int : 417 ms Normal sinus rhythm Nonspecific ST abnormality Abnormal ECG Confirmed by CLINTON WILDER MD ([id number]), development editor NICKI ACEVEDO ([id number]) on 02/03/2025 8:30:46 AM Referred By: THELMA Confirmed By: CLINTON WILDER MD 02/03/25829 Date Clinton Wilder MD CC: Dr. Gonzalez Bhandari MD; Dr. Adam Vergara DO Signed Normal [facility] Absolute lymphocyte countOrd ered By: Adam Vergara on 01-31-2025 Lymphocytes Auto (Unsp spec) [#/Vol] 1.69 10*3/uL 0.83-4.51 [facility] Absolute neutrophil countOrd ered By: Adam Vergara on 01-31-2025 Neutrophils (Bld) [#/Vol] 3.0 10*3/uL 2.0-7.7 [facility] Anion gap in Serum or Plasma Ordered By: Adam Vergaar on 01-31-2025 Anion gap [Moles/Vol] 15 mmol/L 5-15 [facility] Automated lymphocyte count a s percentage of total leukocytesOrdered By: Adam Vergara on 01-31-2025 Lymphocytes/100 WBC Auto (Unsp spec) 31.7 % - [facility] BUN/creatinine ratioOrdered By: Adam Vergara on 01-31-2025 Urea nitrogen/Creatinine [Mass ratio] 18.4 mg/mg - [facility] Basic Metabolic Profile (BMP )on 01-31-2025 BUN/CRE 18.4 RATIO Normal - [facility] Comment on above: Performed By: #### L 100.0100, L500.2500 #### [facility] [address] [place], [address] Calcium [Mass/Vol] 9.8 mg/dL Normal 7.6-11.0 [facility] Comment on above: Performed By: #### L 100.0100, L500.2500 #### [facility] [address] [place], [address] Chloride [Moles/Vol] 104 mmol/L Normal 98-108 [facility] Comment on above: Performed By: #### L 100.0100, L500.2500 #### [facility] [address] [place], [address] CO2 [Moles/Vol] 19.9 mmol/L Low 21.0-32.0 [facility] Comment on above: Performed By: #### L 100.0100, L500.2500 #### [facility] [address] [place], [address] Creatinine [Mass/Vol] 0.89 mg/dL Normal 0.70-1.20 [facility] Comment on above: Performed By: #### L 100.0100, L500.2500 #### [facility] [address] [place], [address] ECRCL 72.24 ml/min Normal 50-250 [facility] Comment on above: Performed By: #### L 100.0100, L500.2500 #### [facility] [address] [place], [address] GAP 15 Normal 5-15 [facility] Comment on above: Performed By: #### L 100.0100, L500.2500 #### [facility] [address] [place], [address] GFR/1.73 sq M.predicted among non-blacks MDRD (S/P/Bld) [Vol rate/Area] 80 mL/min/{1.73_m2} Normal >60 [facility] Comment on above: Result Comment: mL/m in/1.73m2 CKD-EPI Creatinine Equation (2020) Performed By: #### L 100.0100, L500.2500 #### [facility] [address] [place], [address] Glucose [Mass/Vol] 128 mg/dL High 70-99 [facility] Comment on above: Performed By: #### L 100.0100, L500.2500 #### [facility] [address] [place], [address] Potassium [Moles/Vol] 4.2 mmol/L Normal 3.3-5.1 [facility] Comment on above: Result Comment: Hemo lysis present, Results??could be affected. ?? Performed By: #### L 100.0100, L500.2500 #### [facility] [address] [place], [address] Sodium [Moles/Vol] 139 mmol/L Normal 133-145 [facility] Comment on above: Performed By: #### L 100.0100, L500.2500 #### [facility] [address] [place], [address] Urea nitrogen [Mass/Vol] 16 mg/dL Normal 4-19 [facility] Comment on above: Performed By: #### L 100.0100, L500.2500 #### [facility] [address] [place], [address] Basophil percentageOrdered B y: Adam Vergara on 01-31-2025 Basophils/100 WBC (Bld) 0.9 % 0-[address] [facility] CBC W/Diff, Automatedon 01-08 Absolute Lymph 1.69 X10 3/uL Normal 0.83-4.51 [facility] Comment on above: Performed By: #### L 100.0100, L500.2500 #### [facility] [address] [place], [address] Absolute Neut 3.0 X10 3/uL Normal 2.0-7.7 [facility] Comment on above: Performed By: #### L 100.0100, L500.2500 #### [facility] [address] [place], [address] Basophils/100 WBC (Bld) 0.9 % Normal 0-[address] [facility] Comment on above: Performed By: #### L 100.0100, L500.2500 #### [facility] [address] [place], [address] Eosinophils/100 WBC (Bld) 2.1 % Normal 0-5 [facility] Comment on above: Performed By: #### L 100.0100, L500.2500 #### [facility] [address] [place], [address] Erythrocyte distribution width (RBC) [Ratio] 12.0 % Normal 11.6-14.6 [facility] Comment on above: Performed By: #### L 100.0100, L500.2500 #### [facility] [address] [place], [address] Hematocrit (Bld) [Volume fraction] 38.4 % Normal 37-47 [facility] Comment on above: Performed By: #### L 100.0100, L500.2500 #### [facility] [address] [place], [address] Hemoglobin (Bld) [Mass/Vol] 13.3 g/dL Normal 12.0-15.0 [facility] Comment on above: Performed By: #### L 100.0100, L500.2500 #### [facility] [address] [place], [address] IG% 0.200 Normal 0.0-0.9 [facility] Comment on above: Result Comment: IG% - Immature Granulocytes (promyelocytes, myelocytes and metamyelocytes) > 1% indicates that a LEFT SHIFT is Present. Performed By: #### L 100.0100, L500.2500 #### [facility] [address] [place], [address] Lymphocytes/100 WBC (Bld) 31.7 % Normal 19-41 [facility] Comment on above: Performed By: #### L 100.0100, L500.2500 #### [facility] [address] [place], [address] MCH (RBC) [Entitic mass] 29.8 pg Normal 27.0-32.0 [facility] Comment on above: Performed By: #### L 100.0100, L500.2500 #### [facility] [address] [place], [address] MCHC (RBC) [Mass/Vol] 34.6 g/dL Normal 32-36 [facility] Comment on above: Performed By: #### L 100.0100, L500.2500 #### [facility] [address] [place], [address] MCV (RBC) [Entitic vol] 85.9 fL Normal 81-[address] [facility] Comment on above: Performed By: #### L 100.0100, L500.2500 #### [facility] [address] [place], [address] Monocytes/100 WBC (Bld) 8.1 % Normal 0-[address] [facility] Comment on above: Performed By: #### L 100.0100, L500.2500 #### [facility] [address] [place], [address] Neutrophils/100 WBC (Bld) 57.0 % Normal 47-70 [facility] Comment on above: Performed By: #### L 100.0100, L500.2500 #### [facility] [address] [place], [address] Nucleated RBC (Bld) [#/Vol] 0 10*3/uL Normal 0-5 [facility] Comment on above: Performed By: #### L 100.0100, L500.2500 #### [facility] [address] [place], [address] Platelet mean volume (Bld) [Entitic vol] 10.3 fL Normal 6.2-12.0 [facility] Comment on above: Performed By: #### L 100.0100, L500.2500 #### [facility] [address] [place], [address] Platelets (Bld) [#/Vol] 223 10*3/uL Normal 150-450 [facility] Comment on above: Performed By: #### L 100.0100, L500.2500 #### [facility] [address] [place], [address] RBC (Bld) [#/Vol] 4.47 10*6/uL Normal 4.2-5.4 [facility] Comment on above: Performed By: #### L 100.0100, L500.2500 #### [facility] [address] [place], [address] RDW SD 37.8 fl Normal 35.1-43.9 [facility] Comment on above: Performed By: #### L 100.0100, L500.2500 #### [facility] [address] [place], [address] WBC (Bld) [#/Vol] 5.3 10*3/uL Normal 4.4-11.0 [facility] Comment on above: Performed By: #### L 100.0100, L500.2500 #### [facility] [address] [place], [address] Carbon dioxide, total [Moles /volume] in Central venous bloodOrdered By: Adam Vergara on 01-31-2025 CO2 [Moles/Vol] 19.9 mmol/L Low 21.0-32.0 [facility] Chest PA and Lateralon 01-31 Chest PA and Lateral [facility] Imaging Services [address] [place] [address] Chest PA and Lateral MR#: [id number] Acct: [id number] Name: YUKI BLANKENSHIP Rep #: [id number] : 1975 F 49 From: Nico Siddiqui PCP: Dr. Gonzalez Bhandari MD Status: REG ER Study: Chest PA and Lateral Date of Exam: 01/31/25 Exam# [id number] Ordering Dr: Adam Vergara DO PROCEDURE: CHEST PA AND LATERAL 01/31/2025 REASON FOR EXAM: CHEST PAIN TECHNIQUE: CHEST PA AND LATERAL COMPARISON: 09/08/19 FINDINGS: No focal consolidation. No pleural effusion or pneumothorax. Cardiac silhouette is within normal limits. No acute fractures. RAD/Chest PA and Lateral IMPRESSION: No focal consolidation. Reading Location: [facility] CC: Dr. Gonzalez Bhandari MD; Dr. Adam Vergara DO [employer] Engineer: Signed Normal [facility] Chloride assayOrdered By: Doni Vergara on 01-31-2025 Chloride [Moles/Vol] 104 mmol/L 98-108 [facility] Emergency Department Summary on 01-31-2025 Emergency Department Summary [facility] Medical Records Department [address] [place] [address] Emergency Department Summary 01/31/25 MR#: [id number] Acct: [id number] Name: YUKI BLANKENSHIP Rep #: [id number] : 1975 49 From: Adam Vergara DO PCP: Dr. Gonzalez Bhandari MD Status:REG ER Location: ED HPI History of Present Illness Chief Complaint: Edema Narrative Narrative: Patient is a 49-year-old female past medical history of alcohol use who presents to the emergency department with a chief complaint of chest pain, jaw pain. Patient states that she also has had bilateral lower extremity swelling for a few weeks now. She notes that over the last few weeks while at work she noted that if she has to walk from one side of the hospital to the neck she notes that she has had chest heaviness and more short of breath than normal for self. 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 States that given her swelling and her symptoms with these new symptoms today she came here for further evaluation management. [facility] Medical History Wears glasses Alcohol use Easy bruising Non-smoker Leg cramps History of echocardiogram Back pain Shoulder pain Home Medications ???Medication ???Instructions ???Recorded ???Last Taken ???Type ascorbic acid 125 mg-collagen, 1 cap PO DAILY 09/23/22 Unknown Hi story hydrolyzed 740 mg capsule (Collagen Plus Vitamin C) cholecalciferol (vitamin D3) 25 25 mcg PO DAILY 03/14/23 Unknown H istory mcg (1,000 unit) capsule etonogestrel 0.12 mg-ethinyl 1 vag ring vaginal Q4W #3 ea 04/16 Unknown Rx estradiol 0.015 mg/24 hr vaginal ring (NuvaRing) dexamethasone 6 mg tablet 6 mg PO DAILY #5 tabs 07/25/24 Unk nown Rx Allergy/AdvReac Type Severity Reaction Status Date / Time sulfamethoxazole (From Allergy Intermediate Hives Verified 01/31/25 09:30 Bactrim) trimethoprim (From Bactrim) Allergy Intermediate Hives Verified 01/31/25 09:30 Family History Grandfather Heart disease Grandmother Colon cancer Grandfather Cancer Lung cancer Maternal Grandmother Cancer Lung Maternal Sister Addiction Brother Addiction Surgical History No history of previous surgery Social History current occupational status: employed current occupation: [employer] Smoking Status: Never smoker second hand exposure: No alcohol intake: current alcohol intake frequency: a few times a month Alcohol type: beer and wine substance use type: does not use what type of physical activity do you participate in: none ROS ROS ED ROS Narrative Constitutional: Complains of a headache denies any fevers or chills, lightheadedness Eyes: Denies double vision Cardiovascular: Complaint of chest tightness as noted above denies palpitations Respiratory: Complains of shortness of breath as noted above denies coughing wheezing Abdomen: Denies abdominal pain nausea vomit diarrhea : Denies any urinary symptoms Neurological: Denies any numbness, weakness, tingling Musculoskeletal: Denies back pain Skin: Denies any rashes or lesions EXAM Physical Exam Narrative Exam Narrative: General: Patient is lying in bed rest comfortably did not appear to be in acute distress Head: Atraumatic, normocephalic Eyes: PERRL bilaterally, EOMI by, no conjunctival injection noted Neck: Soft, supple, trachea midline Cardiovascular: Regular rate and rhythm no murmurs gallops rubs noted Respiratory: Clear to auscultation bilaterally Abdomen: Soft, nondistended, nontender to palpation Extremities: Patient has 1+ pitting edema in the bilateral lower extremities, radial pulses +2/4 in the bilateral extremities, +5/5 strength noted in the bilateral upper and lower extremities Neurological: Patient following commands knew that she was at [facility] the year is 2024 Skin: Warm, dry contact no rashes or lesions noted Const Vital Signs: 01/31/25 09:27 01/31/25 10:27 01/31/25 10:48 Temperature 97.8 F Temperature Source Temporal Pulse Rate 96 86 Respiratory Rate 19 H 15 Respiratory Effort Normal Non-Labored Blood Pressure 156/96 H 141/88 H Blood Pressure Mean 116 105 Pulse Ox 97 100 Oxygen Delivery Method Room Air Room Air 01/31/25 10:51 01/31/25 10:56 01/31/25 11:00 Temperature Temperature Source Pulse Rate 84 82 Respiratory Rate 16 Respiratory Effort Blood Pressure 141/88 H 125/84 H Blood Pressure Mean 97 Pulse Ox 99 Oxygen Delivery Method Room Air Room Air 01/31/25 12:00 Temperature Temperature Source Pulse Rate 77 (more content not included)... Normal [facility] Eosinophil percentageOrdered By: Adam Vergara on 01-31-2025 Eosinophils/100 WBC (Bld) 2.1 % 0-5 [facility] Erythrocyte distribution wid th ratioOrdered By: Adam Vergara on 01-31-2025 Erythrocyte distribution width (RBC) [Ratio] 12.0 % 11.6-14.6 [facility] Erythrocyte distribution wid th standard deviationOrdered By: Adam Vergara on 01-31-2025 Erythrocyte distribution width (RBC) [Ratio] 37.8 fl 35.1-43.9 [facility] Glomerular filtration rate ( GFR) estimation/1.73 sq m using serum, plasma, or whole bOrdered By: Adam Vergara on 01-31-2025 GFR/1.73 sq M.predicted among non-blacks MDRD (S/P/Bld) [Vol rate/Area] 80 mL/min/{1.73_m2} >60 [facility] Comment on above: mL/min/1.73m2 CKD-EP I Creatinine Equation (2020) Hematocrit Auto (Bld) [Volum e fraction]Ordered By: Adam Vergara on 01-31-2025 Hematocrit (Bld) [Volume fraction] 38.4 % 37-47 [facility] Hemoglobin measurementOrdere d By: Adam Vergara on 01-31-2025 Hemoglobin (Bld) [Mass/Vol] 13.3 g/dL 12.0-15.0 [facility] Immature granulocytes/100 WB C Auto (Bld)Ordered By: Adam Vergara on 01-31-2025 Immature granulocytes/100 WBC (Bld) 0.200 % 0.0-0.9 [facility] Comment on above: IG% - Immature Granu locytes (promyelocytes, myelocytes and metamyelocytes) > 1% indicates that a LEFT SHIFT is Present. L501.4021on 01-31-2025 Trop T High Sen < 6 Normal <=14 [facility] Comment on above: Performed By: #### L 501.4021 #### [facility] [place], [address] MCV (mean corpuscular volume ) determinationOrdered By: Adam Vergara on 01-31-2025 MCV (RBC) [Entitic vol] 85.9 fL 81-[address] [facility] Mean corpuscular hemoglobin (MCH) determinationOrdered By: Adam Vergara on 01-31-2025 MCH (RBC) [Entitic mass] 29.8 pg 27.0-32.0 [facility] Mean corpuscular hemoglobin concentration (MCHC) determinationOrdered By: Adam Veragra on 01-31-2025 MCHC (RBC) [Mass/Vol] 34.6 g/dL 32-36 [facility] Mean platelet volume determi nationOrdered By: Adam Vergara on 01-31-2025 Platelet mean volume (Bld) [Entitic vol] 10.3 fL 6.2-12.0 [facility] Monocyte percentageOrdered B y: Adam Vergara on 01-31-2025 Monocytes/100 WBC (Bld) 8.1 % 0-[address] [facility] Natriuretic peptide.B prohor romeo N-Terminal [Mass/volume] in Serum or PlasmaOrdered By: Adam Vergara on 01-31-2025 Natriuretic peptide.B prohormone N-Terminal [Mass/Vol] < 36 pg/mL <450 [facility] Comment on above: Heart Failure Unlike ly: < 300 pg/mLHeart Failure Likely< 50 Years: > 450 pg/mL50-75 Years: > 900 pg/mL>75 Years: > 1800 pg/mL Neutrophil percentageOrdered By: Adam Vergara on 01-31-2025 Neutrophils/100 WBC (Bld) 57.0 % 47-70 [facility] Nucleated red blood cell per centageOrdered By: Adam Vergara on 01-31-2025 Nucleated RBC/100 WBC (Bld) [Ratio] 0 % 0-5 [facility] Platelet countOrdered By: Doni Vergara on 01-31-2025 Platelets (Bld) [#/Vol] 223 10*3/uL 150-450 [facility] Potassium measurement (mass/ volume)Ordered By: Adam Vergara on 01-31-2025 Potassium (Unsp spec) [Mass/Vol] 4.2 mmol/L 3.3-5.1 [facility] Comment on above: Hemolysis present, R esults could be affected. Pro- Brain NATRIURETIC PEPTI Ellie 01-31-2025 proBNP < 36 Normal <=450 [facility] Comment on above: Result Comment: Hear t Failure Unlikely: < 300 pg/mL Heart Failure Likely < 50 Years: > 450 pg/mL 50-75 Years: > 900 pg/mL >75 Years: > 1800 pg/mL Performed By: #### L 503.7505 ####[facility] [address] [place], [place], [id number] RBC Auto (Bld) [#/Vol]Ordere d By: Adam Vergara on 01-31-2025 RBC (Bld) [#/Vol] 4.47 10*6/uL 4.2-5.4 [facility] Serum creatinine measurement (mass/volume)Ordered By: Adam Vergara on 01-31-2025 Creatinine [Mass/Vol] 0.89 mg/dL 0.70-1.20 [facility] Serum glucose measurement (m ass/volume)Ordered By: Adam Vergara on 01-31-2025 Glucose [Mass/Vol] 128 mg/dL High 70-99 [facility] Serum or plasma calcium mary urement (mass/volume)Ordered By: Adam Vergara on 01-31-2025 Calcium [Mass/Vol] 9.8 mg/dL 7.6-11.0 [facility] Serum or plasma urea nitroge n measurement (mass/volume)Ordered By: Adam Vergara on 01-31-2025 Urea nitrogen [Mass/Vol] 16 mg/dL 4-19 [facility] Sodium levelOrdered By: Milena Vergara on 01-31-2025 Sodium [Moles/Vol] 139 mmol/L 133-145 [facility] Troponin T HS 2 HRon 025 Trop T High Sen < 6 Normal <=14 [facility] Comment on above: Performed By: #### L 499.0042 ####[facility] [address] [place], [place], [id number] Troponin T HS 4 HRon 025 Trop T High Sen Normal <=14 [facility] Comment on above: Result Comment: [facility] DEPARTED ER. Performed By: #### L 499.0043 ####[facility] [address] [place], [address] Troponin T.cardiac [Mass/vol ume] in Serum or Plasma by High sensitivity methodOrdered By: Adam Vergara on 01-31-2025 Troponin T.cardiac High sensitivity method [Mass/Vol] < 6 ng/L <14 [facility] Troponin T.cardiac High sensitivity method [Mass/Vol] < 6 ng/L <14 [facility] White blood cell (WBC) count Ordered By: Adam Vergara on 01-31-2025 WBC (Bld) [#/Vol] 5.3 10*3/uL 4.4-11.0 [facility] Absolute lymphocyte countOrd ered By: Max [facility] 01-[facility]25 Lymphocytes Auto (Unsp spec) [#/Vol] 1.72 10*3/uL 0.83-4.51 [facility] Absolute neutrophil countOrd ered By: Max Puri on 01-13-2025 Neutrophils (Bld) [#/Vol] 5.0 10*3/uL 2.0-7.7 [facility] Anion gap in Serum or Plasma Ordered By: Max [facility] on 01-13-2025 Anion gap [Moles/Vol] 9 mmol/L 5-15 [facility] Automated lymphocyte count a s percentage of total leukocytesOrdered By: Max [facility] on 01-13-2025 Lymphocytes/100 WBC Auto (Unsp spec) 23.2 % 19-41 [facility] BUN/creatinine ratioOrdered By: Max [facility] 01-13-2025 Urea nitrogen/Creatinine [Mass ratio] 13.3 mg/mg 10-20 [facility] Basophil percentageOrdered B y: Max Puri on 01-13-2025 Basophils/100 WBC (Bld) 0.8 % 0-[address] [facility] Bilirubin, totalOrdered By: Max Puri on 01-13-2025 Bilirubin [Mass/Vol] 0.21 mg/dL 0.00-1.30 [facility] CBC W/Diff, Automatedon Absolute Lymph 1.72 X10 3/uL Normal 0.83-4.51 [facility] Comment on above: Order Comment: Order Date: 01/13/25 Order Info: 0184-1 - CBCD Performed By: #### L 100.0100 #### [facility] [address] [place], [address] Absolute Neut 5.0 X10 3/uL Normal 2.0-7.7 [facility] Comment on above: Order Comment: Order Date: 01/13/25 Order Info: 0184-1 - CBCD Performed By: #### L 100.0100 #### [facility] [address] [place], [address] Basophils/100 WBC (Bld) 0.8 % Normal 0-[address] [facility] Comment on above: Order Comment: Order Date: 01/13/25 Order Info: 0184-1 - CBCD Performed By: #### L 100.0100 #### [facility] [address] [place], [address] Eosinophils/100 WBC (Bld) 0.9 % Normal 0-5 [facility] Comment on above: Order Comment: Order Date: 01/13/25 Order Info: 0184-1 - CBCD Performed By: #### L 100.0100 #### [facility] [address] [place], [address] Erythrocyte distribution width (RBC) [Ratio] 12.3 % Normal 11.6-14.6 [facility] Comment on above: Order Comment: Order Date: 01/13/25 Order Info: 0184-1 - CBCD Performed By: #### L 100.0100 #### [facility] [address] [place], [address] Hematocrit (Bld) [Volume fraction] 38.2 % Normal 37-47 [facility] Comment on above: Order Comment: Order Date: 01/13/25 Order Info: 0184-1 - CBCD Performed By: #### L 100.0100 #### [facility] [address] [place], [address] Hemoglobin (Bld) [Mass/Vol] 12.8 g/dL Normal 12.0-15.0 [facility] Comment on above: Order Comment: Order Date: 01/13/25 Order Info: 0184-1 - CBCD Performed By: #### L 100.0100 #### [facility] [address] [place], [address] IG% 0.400 Normal 0.0-0.9 [facility] Comment on above: Order Comment: Order Date: 01/13/25 Order Info: 0184- - CBCD Result Comment: IG% - Immature Granulocytes (promyelocytes, myelocytes and metamyelocytes) > 1% indicates that a LEFT SHIFT is Present. Performed By: #### L 100.0100 #### [facility] [address] [place], [address] Lymphocytes/100 WBC (Bld) 23.2 % Normal 19-41 [facility] Comment on above: Order Comment: Order Date: 01/13/25 Order Info: 0184- - CBCD Performed By: #### L 100.0100 #### [facility] [address], [address] MCH (RBC) [Entitic mass] 29.5 pg Normal 27.0-32.0 [facility] Comment on above: Order Comment: Order Date: 01/13/25 Order Info: 0184- - CBCD Performed By: #### L 100.0100 #### [facility] [address] [place], [address] MCHC (RBC) [Mass/Vol] 33.5 g/dL Normal 32-36 [facility] Comment on above: Order Comment: Order Date: 01/13/25 Order Info: 0184-1 - CBCD Performed By: #### L 100.0100 #### [facility] [address] [place], [address] MCV (RBC) [Entitic vol] 88.0 fL Normal 81-[address] [facility] Comment on above: Order Comment: Order Date: 01/13/25 Order Info: 0184-1 - CBCD Performed By: #### L 100.0100 #### [facility] [address] [place], [address] Monocytes/100 WBC (Bld) 7.6 % Normal 0-[address] [facility] Comment on above: Order Comment: Order Date: 01/13/25 Order Info: 0184-1 - CBCD Performed By: #### L 100.0100 #### [facility] [address] [place], [address] Neutrophils/100 WBC (Bld) 67.1 % Normal 47-70 [facility] Comment on above: Order Comment: Order Date: 01/13/25 Order Info: 0184-1 - CBCD Performed By: #### L 100.0100 #### [facility] [address] [place], [address] Nucleated RBC (Bld) [#/Vol] 0 10*3/uL Normal 0-5 [facility] Comment on above: Order Comment: Order Date: 01/13/25 Order Info: 0184-1 - CBCD Performed By: #### L 100.0100 #### [facility] [address] [place], [address] Platelet mean volume (Bld) [Entitic vol] 10.6 fL Normal 6.2-12.0 [facility] Comment on above: Order Comment: Order Date: 01/13/25 Order Info: 0184-1 - CBCD Performed By: #### L 100.0100 #### [facility] [address] [place], [address] Platelets (Bld) [#/Vol] 210 10*3/uL Normal 150-450 [facility] Comment on above: Order Comment: Order Date: 01/13/25 Order Info: 0184-1 - CBCD Performed By: #### L 100.0100 #### [facility] [address] [place], [place], [address] ([address]) RBC (Bld) [#/Vol] 4.34 10*6/uL Normal 4.2-5.4 [facility] Comment on above: Order Comment: Order Date: 01/13/25 Order Info: 018- - CBCD Performed By: #### L 100.0100 #### [facility] [address] [place], [address] RDW SD 39.4 fl Normal 35.1-43.9 [facility] Comment on above: Order Comment: Order Date: 01/13/25 Order Info: 018- - CBCD Performed By: #### L 100.0100 #### [facility] [address] [place], [address] WBC (Bld) [#/Vol] 7.4 10*3/uL Normal 4.4-11.0 [facility] Comment on above: Order Comment: Order Date: 01/13/25 Order Info: 018- - CBCD Performed By: #### L 100.0100 #### [facility] [address] [place], [place], [address] Carbon dioxide, total [Moles /volume] in Central venous bloodOrdered By: Max Puri on 01-13-2025 CO2 [Moles/Vol] 24.8 mmol/L 21.0-32.0 [facility] Chloride assayOrdered By: An gel Khushi on 01-13-2025 Chloride [Moles/Vol] 106 mmol/L 98-108 [facility] Comprehensive Metabolic Prof ilon 01-13-2025 Albumin [Mass/Vol] 4.3 g/dL Normal 3.5-5.0 [facility] Comment on above: Order Comment: Order Date: 01/13/25 Order Info: 0786-1 - CMP Order Info: 1751-7 - ALB Order Info: 3016-3 - TSH Performed By: #### L 500.4050 #### [facility] [address] [place], [address] Albumin/Globulin [Mass ratio] 1.7 {ratio} Normal 0.9-2.4 [facility] Comment on above: Order Comment: Order Date: 01/13/25 Order Info: 785-1 - CMP Order Info: 7 - ALB Order Info: 3015-3 - TSH Performed By: #### L 500.4050 #### [facility] [address] [place], [address] ALK PHOS 55 U/L Normal 35-104 [facility] Comment on above: Order Comment: Order Date: 01/13/25 Order Info: 785-1 - CMP Order Info: 1757 - ALB Order Info: 3015-3 - TSH Performed By: #### L 500.4050 #### [facility] [address] [place], [address] ALT [Catalytic activity/Vol] 16 U/L Normal <=34 [facility] Comment on above: Order Comment: Order Date: 01/13/25 Order Info: 785-1 - CMP Order Info: 7 - ALB Order Info: 3015-3 - TSH Performed By: #### L 500.4050 #### [facility] [address] [place], [address] AST [Catalytic activity/Vol] 19 U/L Normal <=31 [facility] Comment on above: Order Comment: Order Date: 01/13/25 Order Info: 785-1 - CMP Order Info: 7 - ALB Order Info: 3015-3 - TSH Performed By: #### L 500.4050 #### [facility] [address] [place], [address] Bilirubin [Mass/Vol] 0.21 mg/dL Normal 0.00-1.30 [facility] Comment on above: Order Comment: Order Date: 01/13/25 Order Info: 86-1 - CMP Order Info: 1751-01 - ALB Order Info: 3 - TSH Performed By: #### L 500.4050 #### [facility] [address] [place], [address] BUN/CRE 13.3 RATIO Normal 10-20 [facility] Comment on above: Order Comment: Order Date: 01/13/25 Order Info: 86-1 - CMP Order Info: 1751-01 - ALB Order Info: 3 - TSH Performed By: #### L 500.4050 #### [facility] [address] [place], [address] Calcium [Mass/Vol] 9.6 mg/dL Normal 7.6-11.0 [facility] Comment on above: Order Comment: Order Date: 01/13/25 Order Info: 785-1 - CMP Order Info: 1751-01 - ALB Order Info: 3 - TSH Performed By: #### L 500.4050 #### [facility] [address] [place], [address] Chloride [Moles/Vol] 106 mmol/L Normal 98-108 [facility] Comment on above: Order Comment: Order Date: 01/13/25 Order Info: 785-1 - CMP Order Info: 1751-01 - ALB Order Info: 3 - TSH Performed By: #### L 500.4050 #### [facility] [address] [place], [address] CO2 [Moles/Vol] 24.8 mmol/L Normal 21.0-32.0 [facility] Comment on above: Order Comment: Order Date: 01/13/25 Order Info: 86-1 - CMP Order Info: 1751-01 - ALB Order Info: 3015-3 - TSH Performed By: #### L 500.4050 #### [facility] [address] [place], [address] Creatinine [Mass/Vol] 1.17 mg/dL Normal 0.70-1.20 [facility] Comment on above: Order Comment: Order Date: 01/13/25 Order Info: 785- - CMP Order Info: 7 - ALB Order Info: 3 - TSH Performed By: #### L 500.4050 #### [facility] [address] [place], [place], [address] GAP 9 Normal 5-15 [facility] Comment on above: Order Comment: Order Date: 01/13/25 Order Info: 785-07 - CMP Order Info: 7 - ALB Order Info: 3015-09 - TSH Performed By: #### L 500.4050 #### [facility] [address] [place], [place], [address] GFR/1.73 sq M.predicted among non-blacks MDRD (S/P/Bld) [Vol rate/Area] 58 mL/min/{1.73_m2} Low >60 [facility] Comment on above: Order Comment: Order Date: 01/13/25 Order Info: 785-07 - CMP Order Info: 1751-01 - ALB Order Info: 3015-09 - TSH Result Comment: mL/m in/1.73m2 CKD-EPI Creatinine Equation (2020) Performed By: #### L 500.4050 #### [facility] [address] [place], [place], [address] Globulin (S) [Mass/Vol] 2.5 g/dL Normal 2.2-4.[address] [facility] Comment on above: Order Comment: Order Date: 01/13/25 Order Info: 785-07 - CMP Order Info: 7 - ALB Order Info: 3 - TSH Performed By: #### L 500.4050 #### [facility] [address] [place], [place], [address] Glucose [Mass/Vol] 109 mg/dL High 70-99 [facility] Comment on above: Order Comment: Order Date: 01/13/25 Order Info: 785-1 - CMP Order Info: 1751-01 - ALB Order Info: 3 - TSH Performed By: #### L 500.4050 #### [facility] [address] [place], [address] Potassium [Moles/Vol] 4.2 mmol/L Normal 3.3-5.1 [facility] Comment on above: Order Comment: Order Date: 01/13/25 Order Info: 785-1 - CMP Order Info: 1751-01 - ALB Order Info: 3 - TSH Performed By: #### L 500.4050 #### [facility] [address] [place], [address] Sodium [Moles/Vol] 139 mmol/L Normal 133-145 [facility] Comment on above: Order Comment: Order Date: 01/13/25 Order Info: 785- - CMP Order Info: 1751-01 - ALB Order Info: 3 - TSH Performed By: #### L 500.4050 #### [facility] [address] [place], [address] T PROT 6.7 g/dL Normal 5.9-8.4 [facility] Comment on above: Order Comment: Order Date: 01/13/25 Order Info: 785- - CMP Order Info: 1751-01 - ALB Order Info: 3 - TSH Performed By: #### L 500.4050 #### [facility] [address] [place], [address] Urea nitrogen [Mass/Vol] 16 mg/dL Normal 4-19 [facility] Comment on above: Order Comment: Order Date: 01/13/25 Order Info: 785-1 - CMP Order Info: 1751-01 - ALB Order Info: 3015-3 - TSH Performed By: #### L 500.4050 #### [facility] [address] [place], [address] Eosinophil percentageOrdered By: Max [facility] on 01-13-2025 Eosinophils/100 WBC (Bld) 0.9 % 0-5 [facility] Erythrocyte distribution wid th ratioOrdered By: [facility] on 01-13-2025 Erythrocyte distribution width (RBC) [Ratio] 12.3 % 11.6-14.6 [facility] Erythrocyte distribution wid th standard deviationOrdered By: [facility] on 01-13-2025 Erythrocyte distribution width (RBC) [Ratio] 39.4 fl 35.1-43.9 [facility] Glomerular filtration rate ( GFR) estimation/1.73 sq m using serum, plasma, or whole bOrdered By: Max [facility] on 01-13-2025 GFR/1.73 sq M.predicted among non-blacks MDRD (S/P/Bld) [Vol rate/Area] 58 mL/min/{1.73_m2} Low >60 [facility] Comment on above: mL/min/1.73m2 CKD-EP I Creatinine Equation (2020) Hematocrit Auto (Bld) [Volum e fraction]Ordered By: Max [facility] on 01-13-2025 Hematocrit (Bld) [Volume fraction] 38.2 % 37-47 [facility] Hemoglobin A1con 01-13-2025 HbA1c (Bld) [Mass fraction] 5.2 % Normal <=5.6 [facility] Comment on above: Order Comment: Order Date: 01/13/25 Order Info: 4548-4 - A1C Result Comment: Norm al < 5.7 % Prediabetic 5.7 - 6.4 % Diabetic >or= 6.5 % Please note range changes. Performed By: #### L 501.9985 #### [facility] [address] [place], [place], [id number] Hemoglobin A1c percentageOrd ered By: Max [facility] on 01-13-2025 HbA1c (Bld) [Mass fraction] 5.2 % <5.7 [facility] Comment on above: Normal < 5.7 % Predi abetic 5.7 - 6.4 % Diabetic >or= 6.5 % Please note range changes. Hemoglobin measurementOrdere d By: Max Puri on 01-13-2025 Hemoglobin (Bld) [Mass/Vol] 12.8 g/dL 12.0-15.0 [facility] Immature granulocytes/100 WB C Auto (Bld)Ordered By: Max Puri on 01-13-2025 Immature granulocytes/100 WBC (Bld) 0.400 % 0.0-0.9 [facility] Comment on above: IG% - Immature Granu locytes (promyelocytes, myelocytes and metamyelocytes) > 1% indicates that a LEFT SHIFT is Present. Laboratory - Chemistry and C hemistry - challengeOrdered By: Max Puri on 01-13-2025 AST [Catalytic activity/Vol] 19 U/L <32 [facility] MCV (mean corpuscular volume ) determinationOrdered By: Max [facility] 01-13-2025 MCV (RBC) [Entitic vol] 88.0 fL 81-[address] [facility] Mean corpuscular hemoglobin (MCH) determinationOrdered By: [facility] 01-13-2025 MCH (RBC) [Entitic mass] 29.5 pg 27.0-32.0 [facility] Mean corpuscular hemoglobin concentration (MCHC) determinationOrdered By: [facility] 01-13-2025 MCHC (RBC) [Mass/Vol] 33.5 g/dL 32-36 [facility] Mean platelet volume determi nationOrdered By: Max [facility] 01-13-2025 Platelet mean volume (Bld) [Entitic vol] 10.6 fL 6.2-12.0 [facility] Monocyte percentageOrdered B y: Max [facility] on 01-13-2025 Monocytes/100 WBC (Bld) 7.6 % 0-[address] [facility] Neutrophil percentageOrdered By: [facility] on 01-13-2025 Neutrophils/100 WBC (Bld) 67.1 % 47-70 [facility] Nucleated red blood cell per centageOrdered By: [facility] 01-13-2025 Nucleated RBC/100 WBC (Bld) [Ratio] 0 % 0-5 [facility] Platelet countOrdered By: An gel [facility] on 01-13-2025 Platelets (Bld) [#/Vol] 210 10*3/uL 150-450 [facility] Potassium measurement (mass/ volume)Ordered By: Max Puri on 01-13-2025 Potassium (Unsp spec) [Mass/Vol] 4.2 mmol/L 3.3-5.1 [facility] RBC Auto (Bld) [#/Vol]Ordere d By: Max Puri 01-13-2025 RBC (Bld) [#/Vol] 4.34 10*6/uL 4.2-5.4 [facility] Serum creatinine measurement (mass/volume)Ordered By: Max Puri on 01-13-2025 Creatinine [Mass/Vol] 1.17 mg/dL 0.70-1.20 [facility] Serum globulin measurementOr dered By: Max Puri 01-13-2025 Globulin (S) [Mass/Vol] 2.5 g/dL 2.2-4.[address] [facility] Serum glucose measurement (m ass/volume)Ordered By: Max Puri 01-13-2025 Glucose [Mass/Vol] 109 mg/dL High 70-99 [facility] Serum or plasma alanine rodriguez otransferase (ALT) measurementOrdered By: [facility] 01-13-2025 ALT [Catalytic activity/Vol] 16 U/L <35 [facility] Serum or plasma albumin mary urement (mass/volume)Ordered By: Max [facility] 01-13-2025 Albumin [Mass/Vol] 4.3 g/dL 3.5-5.0 [facility] Serum or plasma albumin/glob ulin mass ratioOrdered By: Max [facility] 01-13-2025 Albumin/Globulin [Mass ratio] 1.7 {ratio} 0.9-2.4 [facility] Serum or plasma alkaline kenyatta sphatase measurementOrdered By: [facility] 01-13-2025 ALP [Catalytic activity/Vol] 55 U/L 35-104 [facility] Serum or plasma calcium mary urement (mass/volume)Ordered By: Max [facility] 01-13-2025 Calcium [Mass/Vol] 9.6 mg/dL 7.6-11.0 [facility] Serum or plasma urea nitroge n measurement (mass/volume)Ordered By: Max Puri 5 Urea nitrogen [Mass/Vol] 16 mg/dL 4-19 [facility] Sodium levelOrdered By: Zayra Puri on 01-13-2025 Sodium [Moles/Vol] 139 mmol/L 133-145 [facility] TSH DL <= 0.005 mIU/L QnOrde red By: Max Puri on 01-13-2025 TSH Qn 2.380 uIU/mL 0.300-4.200 [facility] Thyroid Stim Hormone (TSH)on 01-13-2025 TSH 2.380 uIU/mL Normal 0.300-4.200 [facility] Comment on above: Order Comment: Order Date: 01/13/25 Order Info: 0786-1 - CMP Order Info: 1751-7 - ALB Order Info: 3016-3 - TSH Performed By: #### L 501.9520 #### [facility] [address] [place], [address] Total proteinOrdered By: Eleno martinez Khushi on 01-13-2025 Protein [Mass/Vol] 6.7 g/dL 5.9-8.4 [facility] White blood cell (WBC) count Ordered By: Max Puri on 01-13-2025 WBC (Bld) [#/Vol] 7.4 10*3/uL 4.4-11.0 [facility] Office Visit Reporton [address] [facility] [address] [place] [address] OFFICE VISIT Date of Service: 07/25/24 MR#: [id number] Acct: [id number] Patient: YUKI BLANKENSHIP Rep #: [id number] : 1975 Provider: SÁNCHEZ Bautista Age/Sex: 49/F Location[place] [facility] Status: Signed Intake Vital Signs 03/14/23 15:29 Height 5 ft 3 in Intake Visit Reasons: EMPLOYEE COVID/ [facility] Chief Complaint: ST, JIMÉNEZ, BA, congestion Allergies sulfamethoxazole (From Bactrim) Allergy (Intermediate, Verified 07/25/24 07:36) Hives trimethoprim (From Bactrim) Allergy (Intermediate, Verified 07/25/24 07:36) Hives Office Procedures [facility] Billing Sheet Covid Covid Swab-Rapid: Yes Results POC Tanvi Rapid Strep POC Tanvi Rapid Strep Negative Last Edit by Jeaneth Mueller on 07/25/24 08:15 POC CEPH COV,FluAB,RSV PCR CEPHEID COVID PCR DETECTED Last Edit by Jeaneth Mueller on 07/25/24 08:15 CEPHEID FLU AB PCR NOT DETECTED FLU A B Last Edit by Jeaneth Mueller on 07/25/24 08:15 CEPHEID RSV PCR NOT DETECTED Last Edit by Jeaneth Mueller on 07/25/24 08:15 12/26/24 0815 Date Facundo Ybarra Signature: Date (if applicable) CC: Normal [facility] Office Visit Reporton 2024 Office Visit Report [facility] [address] [place] [address] OFFICE VISIT Date of Service: 07/25/24 MR#: [id number] Acct: [id number] Patient: YUKI BLANKENSHIP Rep #: [id number] : 1975 Provider: SÁNCHEZ Bautista Age/Sex: 49/F Location: [facility] Status: Signed Employer Purchased Covid Test Note: Patient here today for Covid Testing, requested by their Employer. Assessment and Plan Assessment and Plan Orders: Orders POC Cepheid Covid, FluAB, RSV Today R05.9 - Cough, unspecified POC Tanvi Rapid Strep A Today 07/25/24 0751 Date Facundo Andre PA PA Cosigner Signature: Date (if applicable) CC: Normal [facility] Visit Reporton 0 07-25-2024 Urgent Care Visit Report [facility] [address], [address] [place] [address] OFFICE VISIT Date of Service: 07/25/24 MR#: [id number] Acct: [id number] Name: YUKI BLANKENSHIP Rep #: [id number] : 1975 Provider: SÁNCHEZ Bautista Age/Sex: 49/F Location: [facility] Status: Signed Intake Vital Signs 03/14/23 15:29 07/25/24 07:35 Height 5 ft 3 in BP 122/62 H Blood Pressure Location Lt brachial Position Sitting Respiration 15 Pulse 117 H Pulse Source NIBP Temp 99.7 F H Temp Source Oral Pulse Oximetry (%) 98 Oxygen Delivery Method room air Intake Visit Reasons: SORE THROAT, CONGESTION, FEVER Chief Complaint: ST, JIMÉNEZ, BA, congestion Flight Dynamicist Required: No Is patient in pain?: Yes Allergies sulfamethoxazole (From Bactrim) Allergy (Intermediate, Verified 07/25/24 07:36) Hives trimethoprim (From Bactrim) Allergy (Intermediate, Verified 07/25/24 07:36) Hives Is last menstrual period known: No Post menopausal: No Patient : No Have you fallen in the past year?: No Nurse's Note: ST, JIMÉNEZ, BA, congestion since this morning. 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 Patient denies nausea, vomiting or diarrhea. No hemoptysis, shortness of breath or difficulty breathing. No loss of taste or smell. No other associated symptoms or alleviating/aggrava ting factors. ROS Const Constitutional: No other (6 system ROS completed with pertinent findings in the HPI otherwise normal.) Exam Const General: cooperative and well developed HENMT Head: normal to inspection and atraumatic Ears: hearing grossly normal bilaterally Nose: nasal discharge clear Face and sinus: normal facial exam Mouth: oral mucosae normal Throat: abnormal tonsil bilaterally hypertrophy 1+ Resp Effort Inspection: normal respiratory effort and no audible wheezes Auscultation: Bilateral: Clear to Auscultation Cardio Palpation: normal PMI Rate: regular rate Rhythm: regular rhythm Neuro General: patient alert and CN's II-XI intact bilaterally Psych Appearance: grossly normal Mental Status: mental status grossly normal Results POC Tanvi Rapid Strep POC Tanvi Rapid Strep Negative Last Edit by Jeaneth Mueller on 07/25/24 08:15 POC CEPH COV,FluAB,RSV PCR CEPHEID COVID PCR DETECTED Last Edit by Jeaneth Mueller on 07/25/24 08:15 CEPHEID FLU AB PCR NOT DETECTED FLU A B Last Edit by Jeaneth Mueller on 07/25/24 08:15 CEPHEID RSV PCR NOT DETECTED Last Edit by Jeaneth Mueller on 07/25/24 08:15 Coding Level of Care Code Off vis,new,level 3 Diagnoses Contact with or suspected exposure to other viral communicable disease Z20.828 COVID-19 U07.1 Assessment and Plan Assessment and Plan (1) Contact with or suspected exposure to other viral communicable disease: Status: Acute (2) COVID-19: Status: Acute Plan: Patient tested positive for COVID in the office today. Decadron as prescribed today. Encouraged to get plenty of rest, drink lots of clear liquids, and use Tylenol or Ibuprofen (unless contraindicated) for fever and comfort. Patient also educated on other symptomatic management techniques. To be seen in 7-10 days if no improvement; sooner if worsening of symptoms. Patient advised of potential red flags and when appropriate to report to the ED. Patient verbalized understanding and agreement with all the above. Orders: Orders POC Cepheid Covid, FluAB, RSV Today R05.9 - Cough, unspecified POC Tanvi Rapid Strep A Today Medications: New dexamethasone 6 mg PO DAILY 5 tabs 0RF Clinical Quality Measures Falls Risk Screening/Assistive (more content not included)... Normal [facility] SCRN MAMM (CAD)W/SCOUT BILATo n 04-03-2024 SCRN MAMM (CAD)W/SCOUT [facility] Imaging Services [address] [place] [id number] SCRN MAMM (CAD)W/SCOUT BILAT MR#: [id number] Acct: [id number] Name: YUKI BLANKENSIHP Rep #: [id number] : 1975 F 49 From: Amrit pond MD PCP: Dr. Gonzalez Bhandari MD Status: [facility] Study: SCRN MAMM (CAD)W/SCOUT BILAT Date of Exam: 03/11 11/30 Exam# [id number] Ordering Dr: Gonzalez Bhandari -[id number] MAMMOGRAPHY - BILATERAL SCREENING REASON FOR EXAM: Female, 49 years old. Routine annual screening examination. PERTINENT HISTORY: Non-contributory. TECHNIQUE: Digital bilateral breast scout (3D mammographic acquisition) in the CC and MLO projections. 2-D mediolateral oblique (MLO) and craniocaudad (CC) views of both breasts were obtained. CAD: Full Field Digital Mammography with Computer Added Detection was performed. COMPARISON: Comparison is made with prior study dated March 27, 2023 and October 27, 2021. FINDINGS: Breast Composition: The breasts are extremely dense, which lowers the sensitivity of mammography. There are no dominant masses or suspicious calcifications. No other significant abnormalities are identified. There has been no significant change since the prior study. BI/SCRN MAMM (CAD)W/SCOUT BILAT IMPRESSION: Stable bilateral screening mammogram. Yearly follow-up mammogram recommended. (A) ASSESSMENT CATEGORY: BIRADS Category 1: Negative. A letter regarding these results will be sent to the patient by the facility within 30 days. Approximately 10% of breast cancers are not detected by mammography. A normal mammogram should not delay biopsy of a clinically suspicious abnormality. [id number] Electronically Signed: Amrit Wood MD at 8:26 EDT Reading Location ID and State: [facility] / [place] , Service support , CC: Dr. Gonzalez Bhandari MD [employer] Engineer: Signed Normal [facility] CBC, Employeeon 03-19-2024 Absolute Lymph 1.53 X10 3/uL Normal 0.83-4.51 [facility] Comment on above: Performed By: #### L 100.0200, L400.0100, L500.2900 #### [facility] [address] [place], [place], [id number] Absolute Neut 3.3 X10 3/uL Normal 2.0-7.7 [facility] Comment on above: Performed By: #### L 100.0200, L400.0100, L500.2900 #### [facility] [address] [place], [address] Basophils/100 WBC (Bld) 0.9 % Normal 0-[address] [facility] Comment on above: Performed By: #### L 100.0200, L400.0100, L500.2900 #### [facility] [address] [place], [address] Eosinophils/100 WBC (Bld) 2.0 % Normal 0-5 [facility] Comment on above: Performed By: #### L 100.0200, L400.0100, L500.2900 #### [facility] [address] [place], [address] Erythrocyte distribution width (RBC) [Ratio] 12.3 % Normal 11.6-14.6 [facility] Comment on above: Performed By: #### L 100.0200, L400.0100, L500.2900 #### [facility] [address] [place], [address] Hematocrit (Bld) [Volume fraction] 36.7 % Low 37-47 [facility] Comment on above: Performed By: #### L 100.0200, L400.0100, L500.2900 #### [facility] [address] [place], [address] Hemoglobin (Bld) [Mass/Vol] 11.8 g/dL Low 12.0-15.0 [facility] Comment on above: Performed By: #### L 100.0200, L400.0100, L500.2900 #### [facility] [address] [place], [address] Lymphocytes/100 WBC (Bld) 28.2 % Normal 19-41 [facility] Comment on above: Performed By: #### L 100.0200, L400.0100, L500.2900 #### [facility] [address] [place], [address] MCH (RBC) [Entitic mass] 28.4 pg Normal 27.0-32.0 [facility] Comment on above: Performed By: #### L 100.0200, L400.0100, L500.2900 #### [facility] [address] [place], [address] MCHC (RBC) [Mass/Vol] 32.2 g/dL Normal 32-36 [facility] Comment on above: Performed By: #### L 100.0200, L400.0100, L500.2900 #### [facility] [address] [place], [address] MCV (RBC) [Entitic vol] 88.2 fL Normal 81-[address] [facility] Comment on above: Performed By: #### L 100.0200, L400.0100, L500.2900 #### [facility] [address] [place], [address] Monocytes/100 WBC (Bld) 7.4 % Normal 0-[address] [facility] Comment on above: Performed By: #### L 100.0200, L400.0100, L500.2900 #### [facility] [address] [place], [address] Neutrophils/100 WBC (Bld) 61.3 % Normal 47-70 [facility] Comment on above: Performed By: #### L 100.0200, L400.0100, L500.2900 #### [facility] [address] [place], [address] NRBC # 0.00 10 3/uL Normal 0-5 [facility] Comment on above: Performed By: #### L 100.0200, L400.0100, L500.2900 #### [facility] [address] [place], [address] Nucleated RBC (Bld) [#/Vol] 0 10*3/uL Normal 0-5 [facility] Comment on above: Performed By: #### L 100.0200, L400.0100, L500.2900 #### [facility] [address] [place], [address] Platelet mean volume (Bld) [Entitic vol] 10.8 fL Normal 6.2-12.0 [facility] Comment on above: Performed By: #### L 100.0200, L400.0100, L500.2900 #### [facility] [address] [place], [address] Platelets (Bld) [#/Vol] 202 10*3/uL Normal 150-450 [facility] Comment on above: Performed By: #### L 100.0200, L400.0100, L500.2900 #### [facility] [address] [place], [address] RBC (Bld) [#/Vol] 4.16 10*6/uL Low 4.2-5.4 [facility] Comment on above: Performed By: #### L 100.0200, L400.0100, L500.2900 #### [facility] [address] [place], [address] RDW SD 39.6 fl Normal 35.1-43.9 [facility] Comment on above: Performed By: #### L 100.0200, L400.0100, L500.2900 #### [facility] [address] [place], [address] WBC (Bld) [#/Vol] 5.4 10*3/uL Normal 4.4-11.0 [facility] Comment on above: Performed By: #### L 100.0200, L400.0100, L500.2900 #### [facility] [address] [place], [address] Employee Profileon 4 Albumin [Mass/Vol] 3.3 g/dL Normal 3.2-5.0 [facility] Comment on above: Performed By: #### L 100.0200, L400.0100, L500.2900 ####[facility] [address] [place], [address] Albumin/Globulin [Mass ratio] 1.1 {ratio} Normal 0.9-2.4 [facility] Comment on above: Performed By: #### L 100.0200, L400.0100, L500.2900 ####[facility] [address] [place], [address] ALK P 59 U/L Normal 45-117 [facility] Comment on above: Performed By: #### L 100.0200, L400.0100, L500.2900 ####[facility] [address] [place], [address] ALT [Catalytic activity/Vol] 18 U/L Normal 13-56 [facility] Comment on above: Performed By: #### L 100.0200, L400.0100, L500.2900 ####[facility] [address] [place], [address] AST [Catalytic activity/Vol] 15 U/L Normal 15-37 [facility] Comment on above: Performed By: #### L 100.0200, L400.0100, L500.2900 ####[facility] [address] [place], [address] Bilirubin [Mass/Vol] 0.20 mg/dL Normal 0.20-1.00 [facility] Comment on above: Result Comment: For patients on eltrombopag therapy, use of Dimension [place] TBIL is not recommended. Performed By: #### L 100.0200, L400.0100, L500.2900 ####[facility] [address] [place], [address] Bilirubin.direct [Mass/Vol] 0.10 mg/dL Normal 0.00-0.30 [facility] Comment on above: Performed By: #### L 100.0200, L400.0100, L500.2900 ####[facility] [address] [place], [address] BUN/CRE 15.8 RATIO Normal 10-20 [facility] Comment on above: Performed By: #### L 100.0200, L400.0100, L500.2900 ####[facility] [address] [place], [address] CA,Total 9.1 mg/dL Normal 8.5-10.1 [facility] Comment on above: Performed By: #### L 100.0200, L400.0100, L500.2900 ####[facility] [address] [place], [address] Chloride [Moles/Vol] 110 mmol/L High 98-107 [facility] Comment on above: Performed By: #### L 100.0200, L400.0100, L500.2900 ####[facility] [address] [place], [address] CHOL:HDL 2.20 Normal [facility] Comment on above: Performed By: #### L 100.0200, L400.0100, L500.2900 ####[facility] [address] [place], [address] Cholesterol [Mass/Vol] 138 mg/dL Normal 200 [facility] Comment on above: Result Comment: <200 mg/dL Desirable 200-240 mg/dL Borderline >240 mg/dL High Risk Performed By: #### L 100.0200, L400.0100, L500.2900 ####[facility] [address] [place], [address] Cholesterol in HDL [Mass/Vol] 63 mg/dL Normal [facility] Comment on above: Result Comment: The drugs N-Acetylcysteine and Metamizole may falsely depress this assay. Reference Range HDL <40 mg/dL Low HDL Cholesterol HDL >or= 60 mg/dL High HDL Cholesterol Performed By: #### L 100.0200, L400.0100, L500.2900 ####[facility] [address] [place], [address] Cholesterol in LDL [Mass/Vol] 66 mg/dL Normal 0-130 [facility] Comment on above: Performed By: #### L 100.0200, L400.0100, L500.2900 ####[facility] [address] [place], [address] Cholesterol in VLDL [Mass/Vol] 9 mg/dL Normal 5-40 [facility] Comment on above: Performed By: #### L 100.0200, L400.0100, L500.2900 ####[facility] [address] [place], [address] CO2 [Moles/Vol] 25.0 mmol/L Normal 21.0-32.0 [facility] Comment on above: Performed By: #### L 100.0200, L400.0100, L500.2900 ####[facility] [address] [place], [address] Creatinine [Mass/Vol] 0.89 mg/dL Normal 0.55-1.02 [facility] Comment on above: Result Comment: The validity of the calculated GFR GFRAA in patients over 70 years has not been determined. Clinical correlation is essential. Performed By: #### L 100.0200, L400.0100, L500.2900 ####[facility] [address] [place], [address] EST GFR - AA 87 mL/min Normal >60 [facility] Comment on above: Result Comment: Afri can Georgian GFR Calc Performed By: #### L 100.0200, L400.0100, L500.2900 ####[facility] [address] [place], [address] GAP 6 Normal 5-15 [facility] Comment on above: Performed By: #### L 100.0200, L400.0100, L500.2900 ####[facility] [address] [place], [address] GFR/1.73 sq M.predicted among non-blacks MDRD (S/P/Bld) [Vol rate/Area] 72 mL/min/{1.73_m2} Normal >60 [facility] Comment on above: Result Comment: Non- GFR Calc Performed By: #### L 100.0200, L400.0100, L500.2900 ####[facility] [address] [place], [address] Globulin (S) [Mass/Vol] 2.9 g/dL Normal 2.2-4.[address] [facility] Comment on above: Performed By: #### L 100.0200, L400.0100, L500.2900 ####[facility] [address] [place], [address] Glucose [Mass/Vol] 100 mg/dL Normal 74-106 [facility] Comment on above: Result Comment: Fast ing Glucose result from 100 to 125 mg/dL suggests IMPAIRED HOMEOSTASIS per A.D.A. criteria. Performed By: #### L 100.0200, L400.0100, L500.2900 ####[facility] [address] [place], [address] LDH 159 U/L Normal 84-246 [facility] Comment on above: Performed By: #### L 100.0200, L400.0100, L500.2900 ####[facility] [address] [place], [address] Phosphate [Mass/Vol] 2.7 mg/dL Normal 2.5-4.9 [facility] Comment on above: Performed By: #### L 100.0200, L400.0100, L500.2900 ####[facility] [address] [place], [address] Potassium [Moles/Vol] 3.9 mmol/L Normal 3.5-5.1 [facility] Comment on above: Performed By: #### L 100.0200, L400.0100, L500.2900 ####[facility] [address] [place], [address] Sodium [Moles/Vol] 141 mmol/L Normal 136-145 [facility] Comment on above: Performed By: #### L 100.0200, L400.0100, L500.2900 ####[facility] [address] [place], [address] T PROT 6.2 g/dL Low 6.4-8.2 [facility] Comment on above: Performed By: #### L 100.0200, L400.0100, L500.2900 ####[facility] [address] [place], [address] Triglyceride [Mass/Vol] 46 mg/dL Normal [facility] Comment on above: Result Comment: The drugs N-Acetylcysteine and Metamizole may falsely depress this assay. Serum Triglycerides Reference Interval Normal <150 mg/dL Borderline high 150 - 199 mg/dL High 200 - 499 mg/dL Very High > or = 500 mg/dL Performed By: #### L 100.0200, L400.0100, L500.2900 ####[facility] [address] [place], [address] Urea nitrogen [Mass/Vol] 14 mg/dL Normal 7-18 [facility] Comment on above: Performed By: #### L 100.0200, L400.0100, L500.2900 ####[facility] [address] [place], [address] URIC 3.3 mg/dL Normal 2.6-6.0 [facility] Comment on above: Result Comment: The drugs N-Acetylcysteine and Metamizole may falsely depress this assay. Performed By: #### L 100.0200, L400.0100, L500.2900 ####[facility] [address] [place], [address] Urinalysis, Employeeon 03-19 BILIRUBIN URINE Negative Normal Negative [facility] Comment on above: Order Comment: CLEAN CATCH Performed By: #### L 100.0200, L400.0100, L500.2900 ####[facility] [address] [place], [address] Clarity (U) Clear Normal Clear [facility] Comment on above: Order Comment: CLEAN CATCH Performed By: #### L 100.0200, L400.0100, L500.2900 ####[facility] [address] [place], [address] Color (U) Yellow Normal Yellow [facility] Comment on above: Order Comment: CLEAN CATCH Performed By: #### L 100.0200, L400.0100, L500.2900 ####[facility] [address] [place], [address] GLUCOSE, UR Normal Normal Normal [facility] Comment on above: Order Comment: CLEAN CATCH Performed By: #### L 100.0200, L400.0100, L500.2900 ####[facility] [address] [place], [address] KETONE UR Negative Normal Negative [facility] Comment on above: Order Comment: CLEAN CATCH Performed By: #### L 100.0200, L400.0100, L500.2900 ####[facility] [address] [place], [address] LEUK ESTERASE Negative Normal Negative [facility] Comment on above: Order Comment: CLEAN CATCH Performed By: #### L 100.0200, L400.0100, L500.2900 ####[facility] [address] [place], [address] Nitrite Ql (U) Negative Normal Negative [facility] Comment on above: Order Comment: CLEAN CATCH Performed By: #### L 100.0200, L400.0100, L500.2900 ####[facility] [address] [place], [address] OCCULT BLOOD-UR Negative Normal Negative [facility] Comment on above: Order Comment: CLEAN CATCH Performed By: #### L 100.0200, L400.0100, L500.2900 ####[facility] [address] [place], [address] pH UR 6.5 Normal 5.0 - 8.0 [facility] Comment on above: Order Comment: CLEAN CATCH Performed By: #### L 100.0200, L400.0100, L500.2900 ####[facility] [address] [place], [address] PROT DIPSTX Negative Normal Negative [facility] Comment on above: Order Comment: CLEAN CATCH Performed By: #### L 100.0200, L400.0100, L500.2900 ####[facility] [address] [place], [address] SP.GR. DIPSTX 1.010 Normal 1.002-1.030 [facility] Comment on above: Order Comment: CLEAN CATCH Performed By: #### L 100.0200, L400.0100, L500.2900 ####[facility] [address] [place], [address] UROBILI Normal Normal Normal [facility] Comment on above: Order Comment: CLEAN CATCH Performed By: #### L 100.0200, L400.0100, L500.2900 ####[facility] [address] [place], [address] Office Visit Reporton 2023 Office Visit Report [facility] [address] [address] OFFICE VISIT Date of Service: 02/08/24 MR#: [id number] Acct: [id number] Patient: YUKI BLANKENSHIP Rep #: [id number] : 1975 Provider: SÁNCHEZ Bautista Age/Sex: 48/F Location: [facility] Status: Signed Employer Purchased Covid Test Note: Patient here today for Covid Testing, requested by their Employer. Assessment and Plan Assessment and Plan Orders: Orders POC Cepheid Covid, FluAB, RSV 02/08/24 02/09/24 1402 Date Facundo Orellanaignrosa Signature: Date (if applicable) CC: Normal [facility] Office Visit Reporton 2023 Office Visit Report [facility] [address] [address] OFFICE VISIT Date of Service: 02/08/24 MR#: [id number] Acct: [id number] Patient: YUKI BLANKENSHIP MARGARITA Rep #: [id number] : 1975 Provider: SÁNCHEZ Bautista Age/Sex: 48/F Location: [facility] Status: Signed Employer Purchased Covid Test Note: Patient here today for Covid Testing, requested by their Employer. Assessment and Plan Assessment and Plan Orders: Orders POC Cepheid Covid, FluAB, RSV Today 02/08/24 1637 Date Facundo Ybarra Signature: Date (if applicable) CC: Normal [facility] - Chemistry and C hemistry - challengeOrdered By: Dr. Garcia on 09-26-2022 HCG ( test) Ql (U) Negative [facility] Comment on above: Very dilute urine sp ecimens, as indicated by a low specificgravity, may not contain players club representative levels of hCG. If is still suspected, a first morning urinespecimen should be collected 48 hours later and tested. Absolute lymphocyte counton 03-11-2022 Lymphocytes Auto (Unsp spec) [#/Vol] 1.37 10*3/uL 0.83-4.51 [facility] Work Phone: Absolute reticulocyte counto n 03-11-2022 Reticulocytes (Bld) [#/Vol] 0.00 10*3/uL 0-5 [facility] Work Phone: Basophil percentageon 2021 Basophil percentage 2.5 mg/dL 2.5-4.9 [facility] Work Phone: Bilirubin [Mass/Vol] 0.40 mg/dL 0.20-1.00 [facility] Work Phone: Comment on above: For patients on eltr ombopag therapy, use of Dimension [place] TBIL is not recommended. Chloride [Moles/Vol] 110 mmol/L 98-107 [facility] Work Phone: Cholesterol [Mass/Vol] 161 mg/dL <200 [facility] Work Phone: Comment on above: <200 mg/dL Desirable 200-240 mg/dL Borderline >240 mg/dL High Risk Glucose [Mass/Vol] 96 mg/dL 74-106 [facility] Work Phone: Neutrophils (Bld) [#/Vol] 3.2 10*3/uL 2.0-7.7 [facility] Work Phone: Potassium [Moles/Vol] 3.9 mmol/L 3.5-5.1 [facility] Work Phone: Protein [Mass/Vol] 6.9 g/dL 6.4-8.2 [facility] Work Phone: Sodium [Moles/Vol] 142 mmol/L 136-145 [facility] Work Phone: Triglyceride [Mass/Vol] 44 mg/dL <[address] [facility] Work Phone: Comment on above: The drugs N-Acetylcy steine and Metamizole may falsely depress this assay.Serum Triglycerides Reference Interval Normal <150 mg/dL Borderline high 150 - 199 mg/dL High 200 - 499 mg/dL Very High > or = 500 mg/dL WBC (Bld) [#/Vol] 5.1 10*3/uL 4.4-11.0 [facility] Work Phone: Bilirubin Test strip Ql (U)o n 03-11-2022 Bilirubin Ql (U) Negative Negative [facility] Work Phone: Blood erythrocytes count (nu mber/volume)on 03-11-2022 RBC (Bld) [#/Vol] 4.38 10*6/uL 4.2-5.4 [facility] Work Phone: Blood hemoglobin measurement (mass/volume)on 03-11-2022 Hemoglobin (Bld) [Mass/Vol] 12.7 g/dL 12.0-15.0 [facility] Work Phone: Blood platelet mean volumeon 03-11-2022 Platelet mean volume (Bld) [Entitic vol] 10.4 fL 6.2-12.0 [facility] Work Phone: Determination of erythrocyte mean corpuscular volume (MCV)on 03-11-2022 MCV (RBC) [Entitic vol] 88.6 fL 81-[address] [facility] Work Phone: Direct bilirubinon 2 Bilirubin.direct [Mass/Vol] 0.12 mg/dL 0.00-0.30 [facility] Work Phone: Hematocrit Auto (Bld) [Volum e fraction]on 03-11-2022 Hematocrit (Bld) [Volume fraction] 38.8 % 37-47 [facility] Work Phone: Ketones Test strip Ql (U)on 03-11-2022 Ketones Ql (U) Negative Negative [facility] Work Phone: Laboratory - Chemistry and C hemistry - challengeon 03-11-2022 ALP [Catalytic activity/Vol] 54 U/L 45-117 [facility] Work Phone: ALT [Catalytic activity/Vol] 24 U/L 13-56 [facility] Work Phone: Cholesterol.total/Cholest betzaida in HDL [Mass ratio] 2.20 {ratio} [facility] Work Phone: CO2 [Moles/Vol] 29.0 mmol/L 21.0-32.0 [facility] Work Phone: Globulin (S) [Mass/Vol] 3.3 g/dL 2.2-4.[address] [facility] Work Phone: Urea nitrogen/Creatinine [Mass ratio] 18.4 mg/mg 10-20 [facility] Work Phone: Laboratory - Hematology and Cell countson 03-11-2022 Erythrocyte distribution width (RBC) [Entitic vol] 38.6 fL 35.1-43.9 [facility] Work Phone: Erythrocyte distribution width (RBC) [Ratio] 11.9 % 11.6-14.6 [facility] Work Phone: MCH (RBC) [Entitic mass] 29.0 pg 27.0-32.0 [facility] Work Phone: Nucleated RBC/100 WBC (Bld) [Ratio] 0 % 0-5 [facility] Work Phone: MCHC Auto (RBC) [Mass/Vol]on 03-11-2022 MCHC (RBC) [Mass/Vol] 32.7 g/dL 32-36 [facility] Work Phone: Nitrite Test strip Ql (U)on 03-11-2022 Nitrite Ql (U) Negative Negative [facility] Work Phone: No Panel Informationon 03-11 Estimated GFR (MDRD) Amer 97 mL/min >60 [facility] Work Phone: Comment on above: GFR Calc Estimated GFR (MDRD) Non-Af Amer 80 mL/min >60 [facility] Work Phone: Comment on above: Non- GFR Calc Platelets bldon 03-11-2022 Platelets (Bld) [#/Vol] 224 10*3/uL 150-450 [facility] Work Phone: Protein Test strip Ql (U)on 03-11-2022 Protein Ql (U) Negative Negative [facility] Work Phone: Segmented neutrophils/100 WB C Auto (Bld)on 03-11-2022 Segmented neutrophils/100 WBC (Bld) 62.7 % 47-70 [facility] Work Phone: Serum or plasma albumin mary urement (mass/volume)on 03-11-2022 Albumin [Mass/Vol] 3.6 g/dL 3.2-5.0 [facility] Work Phone: Serum or plasma albumin/glob ulin mass ratioon 03-11-2022 Albumin/Globulin [Mass ratio] 1.1 {ratio} 0.9-2.4 [facility] Work Phone: Serum or plasma calcium mary urement (mass/volume)on 03-11-2022 Calcium [Mass/Vol] 9.1 mg/dL 8.5-10.1 [facility] Work Phone: Serum or plasma cholesterol in HDL measurement (mass/volume)on 03-11-2022 Cholesterol in HDL [Mass/Vol] 72 mg/dL >40 [facility] Work Phone: Comment on above: The drugs N-Acetylcy steine and Metamizole may falsely depress this assay. Reference Range HDL <40 mg/dL Low HDL Cholesterol HDL >or= 60 mg/dL High HDL Cholesterol Serum or plasma cholesterol in VLDL measurement (mass/volume)on 03-11-2022 Cholesterol in VLDL [Mass/Vol] 9 mg/dL 5-40 [facility] Work Phone: Serum or plasma creatinine m easurement (mass/volume)on 03-11-2022 Creatinine [Mass/Vol] 0.82 mg/dL 0.55-1.02 [facility] Work Phone: Comment on above: The validity of the calculated GFR & GFRAA in patients over 70 years has not been determined. Clinical correlation is essential. Serum or plasma low density lipoprotein (LDL) cholesterol measurement (mass/volume)on 03-11-2022 Cholesterol in LDL [Mass/Vol] 80 mg/dL 0-130 [facility] Work Phone: Serum or plasma urea nitroge n measurement (mass/volume)on 03-11-2022 Urea nitrogen [Mass/Vol] 15 mg/dL 7-18 [facility] Work Phone: Serum or plasma uric acid me asurement (mass/volume)on 03-11-2022 Urate [Mass/Vol] 4.1 mg/dL 2.6-6.0 [facility] Work Phone: Comment on above: The drugs N-Acetylcy steine and Metamizole may falsely depress this assay. Thin prep Papanicolaou smear with manual screeningon 03-11-2022 Thin prep Papanicolaou smear with manual screening 15 U/L 15-37 [facility] Work Phone: Thin prep Papanicolaou smear with manual screening 3 5-15 [facility] Work Phone: Thin prep Papanicolaou smear with manual screening 164 U/L 84-246 [facility] Work Phone: Urine blood detectionon RBC Ql (U) 10 /ul Negative [facility] Work Phone: Urine clarityon 03-11-2022 Clarity (U) Sl. Cloudy Clear [facility] Work Phone: Urine color determinationon 03-11-2022 Color (U) Straw Yellow [facility] Work Phone: Urine glucose detectionon Glucose Ql (U) Normal mg/dl Normal [facility] Work Phone: Urine leukocyte esterase det ection by dipstickon 03-11-2022 Leukocyte esterase Test strip Ql (U) 100 /ul Negative [facility] Work Phone: Urine pHon 03-11-2022 pH (U) 6.5 [pH] 5.0 - 8.0 [facility] Work Phone: Urine specific gravity measu rementon 03-11-2022 Specific gravity (U) [Rel density] 1.010 1.002-1.030 [facility] Work Phone: Urobilinogen Auto test strip Ql (U)on 03-11-2022 Urobilinogen Ql (U) Normal mg/dl Normal [facility] Work Phone: No Panel Informationon 11-22 Thyroid Stimulating Hormone (TSH) 1.68 uIU/mL 0.358-3.74 [facility] Work Phone: Vitamin D 25-Hydroxy 14.6 ng/mL [facility] Work Phone: Comment on above: Vitamin D 25(OH) Sta tus Range Deficiency <20 ng/mL (50nmol/L) Insufficiency 20 - 30 ng/mL (50 - 75 nmol/L) Sufficiency 30 - 100 ng/mL (75 - 250 nmol/L) Toxicity >100 ng/mL (>250 nmol/L) Laboratory - Microbiology an d Antimicrobial susceptibilityon 07-19-2021 SARS-CoV-2 (COVID-19) RNA FERNANDO+probe Ql (Unsp spec) Not detected [facility] Work Phone: Vital Signs Date Time Vital Sign Value Performing Clinician Faci lity 01-31-2025 13:54-0400 Body temperature 97.8 [degF] Dr. Gonzalez Bhandari MD Work Phone: [facility] 01-31-2025 13:54-0400 Diastolic blood pressure 86 mm[Hg] Dr. Gonzalez Bhandari MD Work Phone: [facility] 01-31-2025 13:54-0400 Heart rate 73 /min Dr. Gonzalez Bhandari MD Work Phone: [facility] 01-31-2025 13:54-0400 Respiratory rate 16 /min Dr. Gonzalez Bhandari MD Work Phone: [facility] 01-31-2025 13:54-0400 SaO2% (BldA) [Mass fraction] 99 % Dr. Gonzalez Bhandari MD Work Phone: [facility] 01-31-2025 13:54-0400 Systolic blood pressure 116 mm[Hg] Dr. Gonzalez Bhandari MD Work Phone: [facility] 01-31-2025 09:27-0400 Body height 160.[address] Gonzalez Bhandari MD Work Phone: [facility] 01-31-2025 09:27-0400 Body mass index (BMI) [Ratio] 27.1 kg/m2 Dr. Gonzalez Bhandari MD Work Phone: [facility] 01-31-2025 09:27-0400 Body weight 69.[address] Gonzalez Bhandari MD Work Phone: [facility] 03-14-2023 15:29-0400 Body height 160.[address] Monico Bhandari Work Phone: 0(443)[phone] [place] [address] 03-14-2023 15:22-0400 Body mass index (BMI) [Ratio] 24.5 kg/m2 Dr. Monico Bhandari Work Phone: [facility] 03-14-2023 15:22-0400 Body weight 62.[address] Monico Bhandari Work Phone: [facility] 03-14-2023 15:22-0400 Diastolic blood pressure 72 mm[Hg] Dr. Monico Bhandari Work Phone: [facility] 03-14-2023 15:22-0400 Systolic blood pressure 108 mm[Hg] Dr. Monico Bhandari Work Phone: 2(638)083-343345 [address] 09-26-2022 09:35-0400 Body temperature 98.1 [degF] Dr. Monico Bhandari Work Phone: 4(879)474-424045 [address] 09-26-2022 09:35-0400 Diastolic blood pressure 75 mm[Hg] Dr. Monico Bhandari Work Phone: [facility] 09-26-2022 09:35-0400 Heart rate 76 /min Dr. Monico Bhandari Work Phone: [facility] 09-26-2022 09:35-0400 Respiratory rate 16 /min Dr. Monico Bhandari Work Phone: [phone](252)463-899843 [place] [address] 09-26-2022 09:35-0400 SaO2% (BldA) [Mass fraction] 100 % Dr. Monico Bhandari Work Phone: [facility] 09-26-2022 09:35-0400 Systolic blood pressure 107 mm[Hg] Dr. Monico Bhandari Work Phone: [facility] 09-26-2022 08:18-0400 Body height 160.[address] Monico Bhandari Work Phone: [facility] 09-26-2022 08:18-0400 Body mass index (BMI) [Ratio] 23.9 kg/m2 Dr. Monico Bhandari Work Phone: [facility] 09-26-2022 08:18-0400 Body weight 61.[address] Monico Bhandari Work Phone: [facility] 08-04-2022 11:08-0500 Body mass index (BMI) [Ratio] 23 kg/m2 Dr. Monico Bhandari Work Phone: [facility] 08-04-2022 11:08-0500 Body weight 58.[address] Monico Bhandari Work Phone: [facility] 11-22-2021 09:27-0400 Body height 160.[address] Monico Bhandari Work Phone: [facility] Work Phone: 11-22-2021 09:27-0400 Body mass index (BMI) [Ratio] 24.1 kg/m2 Dr. Monico Bhandari Work Phone: [facility] Work Phone: 11-22-2021 09:27-0400 Body weight 61.[address] Monico Bhandari Work Phone: [facility] Work Phone: 11-22-2021 09:27-0400 Diastolic blood pressure 70 mm[Hg] Dr. Monico Bhandari Work Phone: [facility] Work Phone: 11-22-2021 09:27-0400 Systolic blood pressure 100 mm[Hg] Dr. Monico Bhandari Work Phone: [facility] Work Phone: Encounters Encounter Date Encounter Type Care Provider Facility Start: 01-31-2025 End: 01-31-2025 Emergency department patient visit Dr. Gonzalez Bhandari MD Work Phone: -Emergency Department Work Phone: Start: 01-13-2025 End: 01-13-[address] Gonzalez Bhandari MD Work Phone: [facility] Start: 01-13-2025 End: 01-13-2025 Patient encounter procedure Max Puri GRAPHIC ART TECHNICIAN-C -[facility] Work Phone: Start: 01-13-2025 End: 01-13-2025 ambulatory Max Puri GRAPHIC ART TECHNICIAN Facility:[facility] Start: 07-25-2024 End: 07-25-2024 ambulatory Facundo POZO Facility:[facility] Start: 04-03-2024 End: 04-03-2024 ambulatory Gonzalez Bhandari Facility:[facility] Start: 03-19-2024 ambulatory Health Risk Assessment Facility:[facility] Start: 02-08-2024 End: 02-08-2024 ambulatory Facundo POZO [facility] Start: 03-27-2023 End: 03-27-[address] Monico Bhandari Work Phone: [facility] Work Phone: Start: 03-27-2023 End: 03-27-[address] Monico Bhandari Work Phone: [facility]Outpatient Breast Imaging Work Phone: Start: 03-14-2023 End: 03-14-[address] Monico Bhandari Work Phone: [facility] Work Phone: Start: 09-26-2022 Non-patient / Non-visit Dr. Monico Bhandari Work Phone: [facility] Start: 09-26-2022 End: 09-26-2022 Admission to same day surgery center Dr. Monico Bhandari Work Phone: [facility]-Endoscopy Start: 09-26-2022 End: 09-26-[address] Monico Bhandari Work Phone: [facility] Work Phone: Start: 08-04-2022 Non-patient / Non-visit Dr. Monico Bhandari Work Phone: [facility] Start: 03-30-2022 End: 04-08-2022 ambulatory [facility] Work Phone: Start: 03-30-2022 End: 04-08-2022 Discharged Recurring [facility] Start: 03-11-2022 Registered Referred [facility] Start: 12-28-2021 End: 01-06-2022 Discharged Recurring [facility] Start: 11-22-2021 End: 11-22-[address] Monico Bhandari Work Phone: [facility] Start: 10-27-2021 End: 10-27-[address] Monico Bhandari Work Phone: [facility] Start: 07-19-2021 End: 07-19-[address] Monico Bhandari Work Phone: [facility] Procedures Date Procedure Procedure Detail Performing Clinician Start: 01-31-2025 X-ray of chest, PA a nd lateral views Dr. Gonzalez Bhandari MD Work Phone: Start: 01-31-[address] Gonzalez Bhandari MD Work Phone: Start: 03-27-2023 Screening mammography Artur Bhandari Work Phone: Start: 09-26-[address] Celio Bhandari Work Phone: Start: 10-27-2021 Screening mammography Artur Bhandari Work Phone: Viral antigen assay Plan of Treatment Date Care Activity Detail Author Start: 01-31-2025 [facility] Start: 01-31-2025 [facility] Start: 09-26-2022 Patient discharge [facility] Colonoscopy [facility] Patient referral [facility] Work Phone: Troponin T.cardiac [ Mass/volume] in Serum or Plasma by High sensitivity method [facility] US Pelvis [facility] Pelvis transvaginal [facility] Vitamin D, 25-hydrox y measurement [facility] Immunizations Immunization Date Immunization Notes Care Provider Peggy coyne 05-16-2024 influenza, seasonal, injectable, preservative free Dr. Gonzalez Bhandari MD Work Phone: [facility] 05-15-2023 influenza, injectabl e, quadrivalent, preservative free Dr. Gonzalez Bhandari MD Work Phone: [facility] 05-16-2022 influenza, injectabl e, quadrivalent, preservative free Dr. Monico Bhandari Work Phone: [facility] 05-16-2022 influenza, seasonal, injectable Dr. Monico Bhandari Work Phone: [facility] 03-25-2022 Covid Moderna Bivale nt Booster [facility] 05-25-2021 Covid (Moderna) Dr. Meghana Bhandari Work Phone: [facility] 04-14-2021 influenza, injectabl e, quadrivalent, preservative free Dr. Monico Bhandari Work Phone: [facility] 04-14-2021 influenza, seasonal, injectable Dr. Monico Bhandari Work Phone: [facility] 08-18-2020 Covid (Moderna) Dr. Meghana Bhandari Work Phone: [facility] 07-21-2020 Covid (Moderna) Dr. Meghana Bhandari Work Phone: [facility] 05-14-2020 influenza, injectabl e, quadrivalent, preservative free Dr. oMnico Bhandari Work Phone: [facility] 05-14-2020 influenza, seasonal, injectable Dr. Monico Bhandari Work Phone: [facility] 05-22-2019 influenza, injectabl e, quadrivalent, preservative free Dr. Monico Bhandari Work Phone: [facility] 05-22-2019 influenza, seasonal, injectable Dr. Monico Bhandari Work Phone: [facility] 05-18-2018 influenza, injectabl e, quadrivalent, preservative free Dr. Monico Bhandari Work Phone: [facility] 05-18-2018 influenza, seasonal, injectable Dr. Monico Bhandari Work Phone: [facility] 05-17-2017 influenza, injectabl e, quadrivalent, preservative free Dr. Monico Bhandari Work Phone: [facility] 05-17-2017 influenza, seasonal, injectable Dr. Monico Bhandari Work Phone: [facility] 04-07-2016 influenza, injectabl e, quadrivalent, preservative free Dr. Monico Bhanadri Work Phone: [facility] 04-07-2016 influenza, seasonal, injectable Dr. Monico Bhandari Work Phone: [facility] 05-06-2015 influenza, injectabl e, quadrivalent, preservative free Dr. Monico Bhandari Work Phone: [facility] 05-06-2015 influenza, seasonal, injectable Dr. Monico Bhandari Work Phone: [facility] Payers Date Payer Category Payer Unknown [id number] 2024 Self-pay [id number] 2016 Unknown [id number] Unknown [id number] 2.16.8 [id number] Unknown [id number] 2.16.8 [id number] Unknown [id number] 2.16.8 [id number] Unknown [id number] 2.16.8 [id number] Unknown [id number] 2.16.8 [id number] Unknown [id number] 2.16.8 [id number] Unknown [id number] [id number] [id number] Social History Date Type Detail Facility Start: 07-07-2020 End: 03-14-2023 Tobacco smoking status NHIS Unknown if ever smoked [facility] Start: 09-08-2019 Occasional [facility] Start: 09-08-2019 With Family [facility] Start: 1975 Sex Assigned At Female [facility] Start: 03-14-2023 End: 01-31-2025 Tobacco smoking status NHIS Never smoked tobacco (finding) [facility] NEGATED: Highlighted row [facility] Goals Date Patient Goal Desired Activity /State Mental Status Date Assessment Result Facility 01-31-2025 Cognitive function Level Of Cons ciousness Awake;Alert;Appropriate;Follow s Commands [facility] Work Phone: 09-26-2022 Cognitive function Voice/Name [facility] Work Phone: Clinical Notes 09-26-2022 to 01-31-2025 Note Date & Type Note Facility 01-31-2025 Discharge summary [facility] 01-31-2025 Radiology Diagnostic study note [facility] Imaging Services [address] [place], [place] [address] Chest PA and Lateral MR#: [id number] Acct: [id number] Name: YUKI BLANKENSHIP Rep #: [id number] : 1975 F 49 From: Brenna Renteria MD PCP: Dr. Gonzalez Bhandari MD Status: REG ER Study:Chest PA and Lateral Date of Exam: 01/31/25 Exam# [id number] Ordering Dr: Ingrid Vergara DO PROCEDURE: CHEST PA AND LATERAL 01/31/2025 REASON FOR EXAM: CHEST PAIN TECHNIQUE: CHEST PA AND LATERAL COMPARISON: 09/08/19 FINDINGS: No focal consolidation. No pleural effusion or pneumothorax. Cardiac silhouette is within normal limits. No acute fractures. RAD/Chest PA and Lateral IMPRESSION: No focal consolidation. Reading Location: [id number] CC: Dr. Gonzalez Bhandari MD; Dr. Adam Vergara DO ~ [employer] Engineer: Signed [facility] 09-26-2022 Procedure note [facility] 09-26-2022 Procedure note [facility] Chief complaint+Reason for v isit Narrative [facility] Work Phone: Discharge summary Author Adam Vergara [facility] Note Date/Time January 31, 2025 1:18 pm [facility] Medical Records Department [address] [place] [address] Emergency Department Summary 01/31/25 MR#: [id number] Acct: [id number] Name: YUKI BLANKENSHIP Rep #:[id number] : 1975 49 From: Adam Vergara DO PCP: Dr. Gonzalez Bhandari MD Status :REG ER Location: ED HPI History of Present Illness Chief Complaint: Edema Narrative Narrative: Patient is a 49-year-old female past medical history of alcohol use who presentsto the emergency department with a chief complaint of chest pain, jaw pain. Patient states that she also has had bilateral lower extremity swelling for a few weeks now. She notes that over the last few weeks while at work she noted that if she has to walk from one side of the hospital to the neck she notes thatshe has had chest heaviness and more short of breath than normal for self. 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 States that given her swelling and her symptoms with these newsymptoms today she came here for further evaluation management. [facility] Medical History Wears glasses Alcohol use Easy bruising Non-smoker Leg cramps History of echocardiogram Back pain Shoulder pain Home Medications ?Medication ?Instructions ?Recorded ?Last Taken ?Type ascorbic acid 125 mg-collagen, 1 cap PO DAILY 09/23/22 Unknown History hydrolyzed 740 mg capsule (Collagen Plus Vitamin C) cholecalciferol (vitamin D3) 25 25 mcg PO DAILY Unknown History mcg (1,000 unit) capsule etonogestrel 0.12 mg-ethinyl 1 vag ring vaginal Q4W #3 ea 04/16/23 Unknown Rx estradiol 0.015 mg/24 hr vaginal ring (NuvaRing) dexamethasone 6 mg tablet 6 mg PO DAILY #5 tabs Unknown Rx Allergy/AdvReac Type Severity Reaction Status Date / Time sulfamethoxazole (From Allergy Intermediate Hives Verified 01/31/25 09:30 Bactrim) trimethoprim (From Bactrim) Allergy Intermediate Hives Verified 01/31/25 09:30 Family History Grandfather Heart disease Grandmother Colon cancer Grandfather Cancer Lung cancer Maternal Grandmother Cancer Lung Maternal Sister Addiction Brother Addiction Surgical History No history of previous surgery Social History current occupational status: employed 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 [employer] Smoking Status: Never smoker second hand exposure: No alcohol intake: current alcohol intake frequency: a few times a month Alcohol type: beer and wine substance use type: does not use what type of physical activity do you participate in: none ROS ROS ED ROS Narrative Constitutional: Complains of a headache denies any fevers or chills, lightheadedness Eyes: Denies double vision Cardiovascular: Complaint of chest tightness as noted above denies palpitations Respiratory: Complains of shortness of breath as noted above denies coughing wheezing Abdomen: Denies abdominal pain nausea vomit diarrhea : Denies any urinary symptoms Neurological: Denies any numbness, weakness, tingling Musculoskeletal: Denies back pain Skin: Denies any rashes or lesions EXAM Physical Exam Narrative Exam Narrative: General: Patient is lying in bed rest comfortably did not appear to be in acute distress Head: Atraumatic, normocephalic Eyes: PERRL bilaterally, EOMI by, no conjunctival injection noted Neck: Soft, supple, trachea midline Cardiovascular: Regular rate and rhythm no murmurs gallops rubs noted Respiratory: Clear to auscultation bilaterally Abdomen: Soft, nondistended, nontender to palpation Extremities: Patient has 1+ pitting edema in the bilateral lower extremities, radial pulses +2/4 in the bilateral extremities, +5/5 strength noted in the bilateral upper and lower extremities Neurological: Patient following commands knew that she was at [facility] the year is 2024 Skin: Warm, dry contact no rashes or lesions noted Const Vital Signs: 01/31/25 09:27 01/31/25 10:27 01/31/25 10:48 Temperature 97.8 F Temperature Source Temporal Pulse Rate 96 86 Respiratory Rate 19 H 15 Respiratory Effort Normal Non-Labored Blood Pressure 156/96 H 141/88 H Blood Pressure Mean 116 105 Pulse Ox 97 100 Oxygen Delivery Method Room Air Room Air 01/31/25 10:51 01/31/25 10:56 01/31/25 11:00 Temperature Temperature Source Pulse Rate 84 82 Respiratory Rate 16 Respiratory Effort Blood Pressure 141/88 H 125/84 H Blood Pressure Mean 97 Pulse Ox 99 Oxygen Delivery Method Room Air Room Air 01/31/25 12:00 Temperature Temperature Source Pulse Rate 77 Respiratory Rate 15 Respiratory Effort Blood Pressure 113/81 H Blood Pressure Mean 91 Pulse Ox 99 Oxygen Delivery Method Room Air MDM MDM MDM Narrative Medical decision making narrative: Patient is a 49-year-old female who presents to the emergency department with a chief complaint of right-sided jaw pain chest pain shortness of breath with exertion. On the differential diagnosis includes but limited to stable angina, ACS, pneumonia, CHF, anxiety, GERD. Once workup is obtained and reviewed she will be reevaluated. HEART Score for Major Cardiac Events from [email or web address] on 01/31/2025 All calculations should be rechecked by clinician prior to use RESULT SUMMARY: 1 points Low Score (0-3 points) Risk of MACE of 0.9-1.7%. INPUTS: History ?> 0 = Slightly suspicious EKG ?> 0 = Normal Age ?> 1 = 45-64 Risk factors ?> 0 = No known risk factors Initial troponin ?> 0 = <=ormal limit Cannon Score (Revised) for Pulmonary Embolism from [email or web address] on 01/31/2025 All calculations should be rechecked by clinician prior to use RESULT SUMMARY: 3 points Low risk group: 7-9% incidence of PE from several studies. INPUTS: Age >65 ?> 0 = No Previous DVT or PE ?> 0 = No Surgery (under general anesthesia) or lower limb fracture in past month ?> 0 = No Active malignant condition ?> 0 = No Unilateral lower limb pain ?> 0 = No Hemoptysis ?> 0 = No Heart rate ?> 3 = 75-94 Pain on lower limb palpation and unilateral edema ?> 0 = No Patient's CBC reviewed showed no evidence leukocytosis white blood count normal at 5.3, hemoglobin is 13.3, plate count normal at 223. Patient sodium normal at139, potassium normal at 4.2, creatinine normal at 0.89. Patient's troponin wasless than 6 with a delta troponin of less than 6. Patient proBNP less than 36. Patient's EKG reviewed and showed sinus rhythm with a rate of 95 bpm. Patient's chest x-ray reviewed by myself and by radiology showed no acute cardiopulmonary processes. Patient ambulated well here in the emergency department no hypoxia no tachycardia. Discussed results with the patient she would like to go home at this point in time. Patient was encouraged to obtain stress testing in outpatient setting as well as echocardiogram. She was advised to return with worsening symptoms or any concerns. She was advised to use compression stockings for her swelling in her lower extremities as there is suspicion that this is venous insufficiency related as she was placed on Lasix recently and that did not help her swelling. She is agreeable this plan as well as family members at bedside all question concerns answered she was discharged home in stable condition. Lab Data Labs: Laboratory Results - last 24 hr 01/31/25 01/31/25 09:50 11:40 WBC 5.3 RBC 4.47 Hgb 13.3 Hct 38.4 MCV 85.9 MCH 29.8 MCHC 34.6 RDW Std Deviation 37.8 RDW Coeff of Radha 12.0 Plt Count 223 MPV 10.3 Immature Gran % (Auto) 0.200 Neut % (Auto) 57.0 Lymph % (Auto) 31.7 Laurel % (Auto) 8.1 Eos % (Auto) 2.1 Baso % (Auto) 0.9 Absolute Neuts (auto) 3.0 Absolute Lymphs (auto) 1.69 Nucleated RBC % 0 Sodium 139 Potassium 4.2 Chloride 104 Carbon Dioxide 19.9 L Anion Gap 15 BUN 16 Creatinine 0.89 Estim Creat Clear Calc 72.24 Est GFR (MDRD) Non-Af 80 BUN/Creatinine Ratio 18.4 Glucose 128 H Calcium 9.8 Troponin T High Sens < 6 Troponin T Hi Sens 2 Hr < 6 NT pro BNP II < 36 Radiography Diagnostic Testing: Clinical Impression(s) from Imaging Studies Chest X-Ray 01/31/25 10:02 IMPRESSION: No focal consolidation. Reading Location: [facility] Discharge Plan Triage Chief Complaint: Edema ED Provider: Adam Vergara Dx/Rx/DC Orders Clinical Impression: Chest pain, Swelling of both lower extremities Prescriptions: No Action cholecalciferol (vitamin D3) 25 mcg (1,000 unit) capsule 25 mcg PO DAILY dexamethasone 6 mg tablet 6 mg PO DAILY Qty: 5 0RF Collagen Plus Vitamin C 125-740 mg Capsule 1 cap PO DAILY etonogestrel-ethinyl estradiol [NuvaRing] 0.12-0.015 mg/24 hr ring 1 vag ring vaginal Q4W Qty: 3 4RF Primary Care Provider: Gonzalez Bhandari Referrals: Gonzalez Bhandari MD [Primary Care Provider] - Activity Restrictions/Additional Instructions: Follow-up your doctor in outpatient setting to have a stress test and echocardiogram obtained. Return with worsening symptoms or other concerns. Your workup here today did not show any acute findings your chest x-ray was normal. Wear the compression stockings as we discussed to help get the fluid out to your legs especially while at work. Print Language: Tajik Disposition Disposition: Home, Self Care What to do if you have Problems For any increased pain, shortness of breath, bleeding, nausea or vomiting, chestpain, or any unexpected problems, contact your Primary Care Provider. Call [facility] ([phone]) or report to the closest Emergency Room. Call 911 if necessary. 01/31/25 1318 <Electronically signed by Adam Vergara DO> Cosigner Signature (if applicable): CC: Dr. Gonzalez Bhandari MD ~ Signed [facility] Work Phone: Evaluation noteNo assessment information available [facility] Work Phone: Evaluation note* Diagnosis Onset Date Resolution Status Fatigue acute [facility] Work Phone: Evaluation note* Diagnosis Onset Date Resolution Status Encounter for screening for malignant neoplasm of colo n acute [facility] Work Phone: Evaluation note* Diagnosis Onset Date Resolution Status Menorrhagia with regular cycle acute Vitamin D deficiency acute Encounter for routine gynecological examination noneactive [facility] Work Phone: History and physical note Author Dr. Mckeon [facility] September 26, 2022 8:46am Note Date/Time September 26, 2022 8:3 9am [facility] Medical Records Department [address] [place] [address] History & Physical Exam 09/26/22 0839 MR#: [id number] Acct: [id number] Name: YUKI BLANKENSHIP Rep #:[id number] 0 : 1975 47 From: Janet Mckeon MD PCP: Dr. Monico Bhandari MD Status: [facility] Location: [place] [address] HPI - General General Date of Admission: 09/26/22 HPI Narrative YUKI BLANKENSHIP, is a 47 F who presents for screening colonoscopy. Patient never had previous colonoscopy. Patient has bowel movements mostly every day. Patient did have 1 episode of bright red blood per rectum but did not happen again. Patient is not aware of any hemorrhoids. Patient denies any chronic abdominal pain/nausea/vomiting/reflux. Patient's paternal grandmother did have colon cancer in her 50s to 60s but no immediate family history of colon cancer. [facility] Medical History (Updated 09/23/22 @ 10:48 by Michela Preciado) Alcohol use Back pain Easy bruising History of echocardiogram Leg cramps Non-smoker Shoulder pain Wears glasses Home Medications ascorbic acid 125 mg-collagen, hydrolyzed 740 mg capsule (Collagen Plus Vitamin C) 1 cap PO DAILY 09/23/22 [History Last Taken Unknown] Allergy/AdvReac Type Severity Reaction Status Date / Time sulfamethoxazole Allergy Intermediate Hives Verified 09/26/22 08:18 [From Bactrim] trimethoprim [From Bactrim] Allergy Intermediate Hives Verified 09/26/22 08:18 Family History Grandfather Heart disease Grandmother Colon cancer Grandfather Cancer Lung cancer Maternal Grandmother Cancer Lung Maternal Sister Addiction Brother Addiction Surgical History (Updated 09/23/22 @ 10:48 by Michela Preciado) No history of previous surgery Social History current occupational status: employed current occupation: [employer] Smoking Status: Never smoker second hand exposure: No alcohol intake: current alcohol intake frequency: a few times a week Alcohol type: beer and wine substance use type: does not use what type of physical activity do you participate in: none Past Medical/Surgical History Planned Operation Planned Operative Procedure/s: CSCOPE OA Previous Hospitalizations/Surgeries HX Hospitalizations: No Any Problems With Anesthesia: No (NO SURGERY HX) You/Your Family Experience Fever (Hyperthermia) With Anes: No Cholinesterase deficiency: No Cardiovascular Hx Hypertension: No Respiratory Hx Sleep Apnea: No Hx Respiratory Tract Infection/Cold (presently): No Do You Snore Loudly (louder than talking or can be heard): No Do You Often Feel Tired/ Fatigued/ Sleepy Dring Daytime?: No Has Anyone Observed You Stop Breathing During Sleep?: No Result (for STOP score): Negative Smoking Status: Never smoker Neurological Does patient have nerve stimulator: No Reproduction : No Miscellaneous Recent Exposure to Contagious Disease: No Allergies sulfamethoxazole [From Bactrim] Allergy (Intermediate, Verified 09/26/22 08:18) Hives trimethoprim [From Bactrim] Allergy (Intermediate, Verified 09/26/22 08:18) Hives Discharge Is Pt Admitted From a Penitentiary, or a Retirement: No After D/C, Where Do you Plan to Go: Return Home Vital Signs Vital Signs Vital Signs: 09/26/22 08:18 09/26/22 08:18 Temperature 99.0 F Temperature Source Temporal Pulse Rate 99 Respiratory Rate 16 Respiratory Pattern Normal Blood Pressure 113/88 H Blood Pressure Mean 96 Blood Pressure Source Monitor Blood Pressure Position Semi-Fowlers Blood Pressure Location Left Arm Pulse Ox 99 Oxygen Delivery Method Room Air Weight Weight: 135 lb Body Mass Index (BMI) 23.9 Physical Exam Const alert, oriented x3 and no apparent distress HEENT normocephalic and head/scalp atraumatic Resp normal respiratory effort Cardio regular rate GI soft to palpation and non-tender; Negative for non-distended Palpation: Negative for guarding Extremity no clubbing, cyanosis or edema Neuro CN's II-XII intact bilaterally Psych mental status grossly normal Assessment & Plan Assessment/Plan (1) Encounter for screening for malignant neoplasm of colon: Surgery Risks - Colonoscopy Risks Include but are not Limited To: Risks include but are not limited to: Bleeding, perforation requiring further surgery, inability to complete colonoscopy requiring barium enema. 09/26/22 0846 <Electronically signed by Janet Mckeon MD> Cosigner Signature (if applicable): CC: Dr. Monico Bhandari MD; Dr. Janet Mckeon MD~ Signed [facility] Work Phone: Hospital Discharge instructionsAdditional Instructions Follow-up your doctor in outpatient setting to have a stress test and echocardiogram obtained. Return with worsening symptoms or other concerns. Your workup here today did not show any acute findings your chest x-ray was normal. Wear the compression stockings as we discussed to help get the fluid out to your legs especially while at work.[facility] Work Phone: Reason for referral (narrative)No reason for referral information availableWSt. [facility] Work Phone: Family History No Family History Records Found Relationship Condition Age at Onset Recorded Date/T aida grandfather Cardiac disease Unknown grandmother Malignant neoplasm of colon Unknown grandfather Malignant neoplasm Unknown grandmother Malignant neoplasm Unknown sister Addiction Unknown brother Addiction Unknown Advance Directives No Advanced Directives Records Found Advance Directive Response Recorded Date/ Time Living Will No September 08, 2019 1:34pm Power of Senior Animator No September 07 1:34pm Advance Directive Response Recorded Date/ Time Living Will No September 23, 2022 10:43am Power of Senior Animator No September 23 10:43am Advance Directive Response Recorded Date/ Time Do you have a Healthcare Power of Senior Animator? 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 for Visit Fatigue Chief Complaint EMPLOYEE LABS Chief Complaint Amb Documentation Reason for Visit Encounter for screen ing for malignant neoplasm of colon Chief Complaint Annual (E MAIL SYSTEM ADMINISTRATOR) BLEEDING/SCREENING Reason for Visit Menorrhagia with reg ular cycle Vitamin D deficiency Encounter for routine gynecological examination Chief Complaint Admit Date EORDERS January 13, 2025 4:34p m Chief Complaint Admit Date EORDERS January 13, 2025 4:34p m edema January 31, 2025 9:27 am Summary Purpose Additional Source Comments Goals (unrecognized section and content) Goals may be documented in a n alternate sectionGoals may be documented in an alternate sectionGoals may be documented in an alternate sectionGoals may be documented in an alternate sectionGoals may be documented in an alternate sectionGoals may be documented in an alternate section Care Teams (unrecognized sec tion and content) Team Status: Active Member Role Status Dates Dr. Monico Bhandari MD Family Provider Active Dr. Monico Bhandari MD Primary Care Provider Activ e Team Status: Active Member Role Status Dates Dr. Monico Bhandari MD Primary Care Provider Activ e Alisha Valdez Attending Provider Active Team Status: Active Member Role Status Dates Dr. Monico Bhanadri MD Primary Care Provider, Refe rring Provider Active Dr. Janet Mckeon MD Attending Provider, Other Pro vider Active Team Status: Inactive Member Role Status Dates Dr. Monico Bhandari MD Primary Care Provider, Refe rring Provider Active Dr. Janet Mckeon MD Attending Provider Active Team Status: Inactive Member Role Status Dates Dr. oMnico Bhandari MD Primary Care Provider, Refe rring Provider Active Lucia Meza GRAPHIC ART TECHNICIAN, GRAPHIC ART TECHNICIAN-C Attending Provider Active Team Status: Inactive Member Role Status Dates Dr. Monico Bhandari MD Primary Care Provider Activ e Lucia Meza GRAPHIC ART TECHNICIAN, GRAPHIC ART TECHNICIAN-C Attending Provider, Referring Provider Active Team Status: Active Member Role/Relationship Status Dates Dr. Gonzalez Bhandari MD Family Provider Active Dr. Gonzalez Bhandari MD Primary Care Provider Acti ve Team Status: Inactive Member Role/Relationship Status Dates Dr. Gonzalez Bhandari MD Primary Care Provider Acti ve Start: January 13, 2025 End: January 13, 2025 Max Puri GRAPHIC ART TECHNICIAN, GRAPHIC ART TECHNICIAN-C Attending Provider Active Start: January 13, 2025 End: January 13, 2025 Max Puri GRAPHIC ART TECHNICIAN, GRAPHIC ART TECHNICIAN-C Referring Provider Active Start: January 13, 2025 End: January 13, 2025 Team Status: Active Member Role/Relationship Status Dates Dr. Gonzalez Bhandari MD Primary Care Provider Acti ve Team Status: Inactive Member Role/Relationship Status Dates Dr. Gonzalez Bhandari MD Primary Care Provider Acti ve Start: January 31, 2025 End: January 31, 2025 Dr. Adam Vergara DO Emergency Provider Active Start: January 31, 2025 End: January 31, 2025 INFORMATION SOURCE (unrecogn ized section and content) DATE CREATED AUTHOR 02/03/2025 [facility] FOR RECORDS PERTAINING TO PATIENTS WHO ARE OR HAVE BEEN ENROLLED IN A CHEMICAL DEPENDENCY/SUBSTANCEABUSE PROGRAM, SOME INFORMATION MAY BE OMITTED. This clinical summary was aggregated from multiple sources. Caution should be exercised in using it in the provision of clinical care. This summary normalizes information from multiple sources, and as a consequence, information in this document may materially change the coding, format and clinical context of patient data. In addition, data may be omitted in some cases. CLINICAL DECISIONS SHOULD BE BASED ON THE PRIMARY CLINICAL RECORDS. [facility] [employer] provides no warranty or guarantee of the accuracy or completeness of information in this document.
[2025-02-07 09:16] LABS: CORTISOL AM 13.60 ug/dL (6.02-18.40); Ferritin 27 ng/mL (22-378); Vitamin B12 315 pg/mL (180-914); Vitamin D,25 Hydroxy 28.7 ng/mL (30-100)
[2025-02-07 09:30] LABS: CRP < 3.00 mg/L (0.0-3.0); Iron 84 ug/dL (50-170)
[2025-02-10 14:08] LABS: ANTINUCLEAR ANTIBODIES DIRECT Negative (Negative)
[2025-02-10 17:08] LABS: Lyme Scn Total Ab w/Rflx Negative (Negative); PROEL- A/G Ratio 1.3 (0.7-1.7); PROEL- Albumin 3.7 g/dL (2.9-4.4); PROEL- Alpha-1 Globulin 0.2 g/dL (0.0-0.4); PROEL- Alpha-2 Globulin 0.6 g/dL (0.4-1.0); PROEL- Beta Globulin 1.0 g/dL (0.7-1.3); PROEL- Gamma Globulin 1.0 g/dL (0.4-1.8); PROEL- Globulin, Total 2.8 g/dL (2.2-3.9); PROEL- TOTAL PROTEIN 6.5 g/dL (6.0-8.5); PROEL-M-Spike Not Observed g/dL (Not Observed)
== END | disposition home or self-care (01) ==
LOC: LAB 07:49
PROVIDERS: PCP Family Medicine; Visit Provider Family Medicine
DX: R53.83 Other fatigue (principal)
CPT/HCPCS: 36415; 82306; 82533; 82607; 82728; 83540; 84165; 85652; 86038; 86140; 86431; 86618

== ENCOUNTER → 2025-02-27 | Outpatient (CLI) | payer OTHER, SELFPAY ==
--- NOTE | 2025-02-27 12:50 | STE_ITS ---
Reason For Study Reason For Study: Dyspnea Stress Results Protocol: Stress Echocardiogram Ernst Protocol Maximum Predicted HR: 172 bpm Target HR: 146 bpm % Maximum Predicted HR: 97 % Heart Stage Duration Rate BP Comment (mm:ss) (bpm) Baseline 67 122/78Patient denies chest pain Stage 1 3:00 108 128/82Mild dyspnea. Patient denies chest pain. Stage 2 3:00 116 138/82Mild dyspnea. Patient denies chest pain. Stage 3 3:00 151 150/88Mild dyspnea. Denies chest pain. Stage 4 0:40 166 / Patient complains of mild chest tightness midsternal upper chest with moderate dyspnea. Patient states that chest tightness has decreased and is very mild with right sided jaw Recovery 86 118/78tightness. Stress Duration: 9:40 mm:ss Maximum Stress HR: 166 bpm Baseline Echocardiogram Findings Stress Echo Wall motion Data Resting WM Intermediate WM Stress WM ECHO/Stress Test Echo w/o Contrast Interpretation Summary Exercise stress echo. 49-year-old lady with a history of dyspnea. Resting EKG demonstrates sinus rhythm with a rate of 67 bpm. Normal intervals n oted. Resting blood pressure is 122/78 mmHg. The patient exercised according a regular Ernst protocol for 9 minutes an d 40 seconds attaining a maximal heart rate of 169 bpm which was 98% of max impacted heart rate the maximum workload w as 12 metabolic equivalents. At rest there were no ST or T wave changes noted suggest ischemia and at peak exercise upsloping ST changes only were noted we did not meet the criteria for ischemia. No clinical angina was noted the test w as terminated due to fatigue, mild chest tightness, and mild to moderate dyspnea. The peak blood pressure was 150/88 mmH g which was a normal blood pressure response to exercise. No arrhythmias were noted. Stress echocardiogram. The resting echocardiogram demonstrated preserved ejection fraction of 60%. Wit h exercise there was thickening of all thompson reduction of the ventricular cavity size peaking of ejection fraction of 75% with no wall motion abnormalities present. No ischemia was noted. Conclusion: Exercise stress echo with no EKG or echocardiographic criteria for ischemia at a high workload. Good functional capacity. Mild chest tightness of questionable significance. Ordering Physician: Gonzalez Bhandari Referring Physician: Gonzalez Bhandari Performed By: Rossy Zacarias RDCS
== END | disposition home or self-care (01) ==
LOC: CVS 12:49
PROVIDERS: PCP Family Medicine; Referring Provider Family Medicine; Visit Provider Family Medicine
DX: R06.09 Other forms of dyspnea (principal)
CPT/HCPCS: 93017; 93350

== ENCOUNTER → 2025-03-18 | Outpatient (CLI) | payer OTHER, SELFPAY ==
[2025-03-18 13:11] LABS: Follicle Stimulating Hormone 25.2 mIU/mL
[2025-03-24 12:08] LABS: Anti-Mullerian Hormone,Serum 0.051 ng/mL (.)
== END | disposition home or self-care (01) ==
LOC: BWCLAB 10:17
PROVIDERS: PCP Family Medicine; Referring Provider Nurse Practitioner Women's Health; Visit Provider Nurse Practitioner Women's Health
DX: Z13.29 Encounter for screening for other suspected endocrine disorder (principal); N93.9 Abnormal uterine and vaginal bleeding, unspecified
CPT/HCPCS: 36415; 82670; 83001; 83516; 84439; 84443; 86376